=== PATIENT | female | born 1980 | race Caucasian/White ===

== ENCOUNTER 2020-02-22 10:41 | Emergency (ER) | payer SELFPAY ==
[2020-02-22 10:55] VITALS: BP 121/73; PULSE 89; RESP 18; TEMP 37.1; O2SAT 98
--- NOTE | 2020-02-22 11:00 | DI.RAD_ITS ---
EXAM: XR ANKLE LT COMPLETE CLINICAL HISTORY: pain s/p fall. TECHNIQUE: 2D digital imaging was performed. COMPARISON: No exams were available for comparison FINDINGS: Three views left ankle reveal no evidence of fracture or dislocation. Talar dome unremarkable. No w idening of the mortise. Bone density normal. IMPRESSION: No fracture evident. DATA REPOSITORY: RADIATION DOSE DELIVERED:
--- NOTE | 2020-02-22 11:15 | ED.GENADUL_ITS ---
Discharge Plan Disposition Patient Disposition: HOME Condition: Stable Discharge Details Clinical Impression: Left ankle sprain Primary Care Provider: Kaityln Reilly ED Provider: Ravi Bowen Home Meds and New Rx's Prescriptions: Continued Mirena 1 EACH intrauterine device 1 ea Intrauterine ONCE Qty: 1 RF: 0 Discharge Instructions Instructions: Ankle Sprain (ED) Additional Instructions: if pain continues in a week follow up with your primary care provider you can take 1000mg tylenol and 600mg ibuprofen for pain as needed every 6 hours Medical Decision Making 39 yo female states yesterday she rolled her left ankle on a stair, did not fall or hit her head. She has pain over lateral malleolus and can bear weight with mild limp and can fully move the anlke though with pain. Normal pulses and sensation and no metatarsal pain. Suspect sprain but will xray to evaluate for fx xray negative suspect sprain, will have her f/u with pcp if pain continues in a week and return precautions given Differential Diagnosis Differential Diagnosis: sprain, strain, fx Imaging Data Radiologic Study: Attestation: I personally reviewed and interpreted this imaging study as follows: Imaging: X-Ray Lab Data Labs: no acute findings HPI General Mode of arrival: ambulatory . Date/Time Provider Initiated Documentation: 02/22/20 10:51 . Limitations to Documentation: no limitations . Information obtained by: patient . History of Present Illness 39 year old F presents to the emergency department with the chief complaint of left ankle pain, described as moderate, and it has been constant. No relieving factors improve symptom(s), No exacerbating factors reported . Patient did receive the following treatments prior to arrival, none Related Data Home Medications Medication Instructions Recorded Confirmed Mirena 1 ea INTRAUTERINE ONCE #1 implant 03/27/16 02/22/20 Allergies Allergy/AdvReac Type Severity Reaction Status Date / Time doxycycline AdvReac Intermediate Vomiting Unverified 09/12/17 13:02 General Stated Complaint: Orthopedic MARC: 4 Review of Systems All systems reviewed & are unremarkable except as noted in HPI and below Constitutional Constitutional: Denies chills, Denies fever(s) and Denies weakness Cardiovascular Cardiovascular: Denies chest pain and Denies dyspnea Respiratory Respiratory: Denies cough and Denies dyspnea Gastrointestinal Gastrointestinal: Denies abdominal pain, Denies nausea and Denies vomiting Musculoskeletal Musculoskeletal: Denies joint swelling Neurologic Neurologic: Denies weakness Psychiatric Psychiatric: Denies depression PFS Medical History (Updated 02/22/20 @ 11:43 by Ravi Bowen MD) gallstone Surgical History (Updated 01/02/18 @ 14:34 by [facility] [place]) section X 2 Cholecystectomy Ligation of fallopian tube Family History Mother Cardiovascular disease CABG Father Diabetes mellitus, type 2 Social History Smoking/Tobacco Use Status: Current every day Smoking risk assessment performed?: Yes Alcohol Intake: never Drug use: Never Substance use type: does not use Do you feel safe in your relationship?: Yes Exam Const General: no acute distress Orientation: alert HENMT Head: normal to inspection Ears: external ears normal General nose exam: external nose normal Mouth: moist mucous membranes Eyes General: appearance normal, both eyes and all related structures Neck Neck: normal visual inspection Resp Effort & Inspection: normal respiratory effort and able to speak in complete sentences Cardio Rate: regular rate Skin General skin exam: no rashes or lesions noted Neuro General: patient alert and patient oriented x3 Extrem General: normal to inspection Psych Mental Status: mental status grossly normal Course Vital Signs Vital signs: Vital Signs Temperature 37.1 C 02/22/20 10:55 Pulse 89 02/22/20 10:55 Respiratory Rate 18 02/22/20 10:55 Blood Pressure 121/73 02/22/20 10:55 Pulse Oximetry 98 02/22/20 10:55 Temperature 37.1 C 02/22/20 10:55 Temperature Source Skin 02/22/20 10:55 Pulse 89 02/22/20 10:55 Respiratory Rate 18 02/22/20 10:55 Respiratory Effort Non-Labored 02/22/20 10:59 Blood Pressure 121/73 02/22/20 10:55 Blood Pressure Position Sitting 02/22/20 10:55 Pulse Oximetry 98 02/22/20 10:55 Oxygen Delivery Method Room Air 02/22/20 10:55 Oxygen Flow Rate 0 02/22/20 10:55 Pain Level 7 02/22/20 10:57
--- NOTE | 2020-02-22 11:38 | DI.VRAD_ITS ---
PROCEDURE INFORMATION: Exam: XR Left Ankle Exam date and time: 02/22/2020 11:02 AM Age: 39 years old Clinical indication: Other: Pain S/P fall TECHNIQUE: Imaging protocol: XR Left ankle. Views: 3 or more views. COMPARISON: CR LEFT ANKLE COMPLETE 10/04/2015 5:22 PM FINDINGS: Bones/joints: Normal. Soft tissues: Normal. IMPRESSION: No acute findings. Dictated and Authenticated by: Julio Crowley MD. Ordering:ADALBERTO Rodrigues MD
== END 2020-02-22 12:00 | disposition home or self-care (01) ==
LOC: ER 12:00
PROVIDERS: Emergency Provider Emergency Medicine; PCP Internal Medicine
DX: S93.492A Sprain of other ligament of left ankle, initial encounter (principal); X50.9XXA Other and unspecified overexertion or strenuous movements or postures, initial encounter
CPT/HCPCS: 99283; 73610

== ENCOUNTER 2022-12-27 17:22 | Inpatient (IN) | payer BC, SELFPAY ==
[2022-12-27 17:36] VITALS: BP 155/91; PULSE 100; RESP 20; TEMP 37.2; O2SAT 100
--- NOTE | 2022-12-27 17:45 | DI.CT_ITS ---
Exam(s) CT PELVIC W EXAM: CT PELVIC W CLINICAL HISTORY: perineal abscess TECHNIQUE: Imaging Protocol: Axial computed tomography images with coronal and sagittal reformatted images were created and reviewed CONTRAST MATERIAL: Intravenous: Omnipaque 350 Contrast volume:100 mL Oral: No COMPARISON: CT RENAL COLIC WO CONTRAST from 08/24/2017 FINDINGS: PELVIS: Abdominal Aorta: Abdominal portion non-dilated. Atherosclerosis. Bowel: No obstruction or bowel wall thickening. Appendix is unremarkable. Peritoneal Cavity: No ascites, collection or mesenteric inflammatory response. Soft Tissues: There is a small fat containing umbilical hernia. There is infiltration in the medial left gluteal fold perianal region. This measures 3.6 cm. There is a fluid collection in this region measuring approximately 2.3 cm consistent with an abscess. Bladder: Symmetric distention, no gross wall thickening. Reproductive Organs: There is an IUD in good position. Lymph Nodes: There is an enlarged 1.6 x 2.6 cm left external iliac chain lymph node. This has shown interval increase in size compared to the prior examination. Previously this measured 0.8 x 1.5 cm. There also mildly enlarged lymph nodes in the left inguinal region. The largest measures 1.9 x 1.1 cm. Bones: Within normal limits for the patient's age. IMPRESSION: Left gluteal/perianal abscess as described. RADIATION DOSE DELIVERED: Total DLP DATA REPOSITORY: All CT scans at this facility are submitted to the National Radiology Data Registry (NRDR) Dose Index Registry (DIR) with the [employer] (A[employer]). RADIATION OPTIMIZATION: All CT scans at this facility use at least one of these dose optimization te chniques: automated exposure control; mA and/or kV adjustment per patient size (includes targeted exa ms where dose is matched to clinical indication); or iterative reconstruction.
[2022-12-27 18:17] LABS: Abs Immature Grans 0.04 10^3/uL (0.0-0.06); Absolute Basophil Count 0.07 10^3/uL (0.0-0.2); Absolute Eosinophil Count 0.22 10^3/uL (0.0-0.7); Absolute Lymphocyte Count 2.42 10^3/uL (1.2-3.4); Absolute Monocyte Count 0.41 10^3/uL (0.1-0.8); Absolute Neutrophil Count 8.44 10^3/uL (1.2-6.7); Basophils % 0.6; Eosinophils % 1.9; HGB 15.1 g/dL (11.2-15.7); Immature Grans % 0.3; Lymphocytes % 20.9; MCH 31.1 pg (27.0-33.0); MCHC 34.3 % (32.0-36.0); MCV 91 fL (80-95); MPV 9.3 fL (8.0-11.0); Monocytes % 3.5; Neutrophils % 72.8; Platelet Count 183 10^3/uL (130-400); RBC 4.86 10^6/uL (3.93-5.22); RDW 12.7 % (11.7-14.6); RDW-SD 42.1 fL
--- NOTE | 2022-12-27 18:26 | ED.GENADUL_ITS ---
Discharge Plan Discharge Details Chief Complaint: RashLesion Admit Date/Time: 12/27/22 20:01 Admit Provider: Jo Ann Rios Attending Provider: Jo Ann Rios Primary Care Provider: Kaitlyn Reilly ED Provider: Freedom Singh Discharge Data Discharge Date/Time-TO BE ENTERED AT DEPARTURE: 12/27/22 21:27 Medical Decision Making Emergent evaluation of abscess. Initial differential includes cellulitis, perirectal abscess, necrotizing fasciitis, labial abscess. Patient has elevated heart rate. She is afebrile. Symptoms have been progressively worsening over the weekend she has history of sweat gland infections. I am concerned for deep space infection. Initial plan includes IV antibiotics, fluid resuscitation, pain control. We will check lab work and draw blood cultures. Will get CT imaging of the area to evaluate the extent of the infection. I anticipate need for surgical consultation for drainage. 1830: CBC with elevated white count and shift I am concerned for deep space infection. 1920: CMP without electrolyte abnormalities. test negative. At this time pain is improved with medication. CT pending. 1950: CT results and imaging reviewed. Large ABSCESS In the perineum, given its size and complexity, will consult general surgery for management. Discussed with general surgery they recommend admission, continued IV antibiotics and they will surgically manage abscess tomorrow. Patient updated on plan. Medical Records Medical records reviewed: Yes I reviewed the patient's medical records. Lab Data Lab results reviewed: Yes I reviewed the patient's lab results. Labs: 12/27/22 18:33 Blood Blood Culture - Pending 12/27/22 18:10 Blood Blood Culture - Pending Laboratory Tests Range/Units 12/27/22 12/27/22 12/27/22 18:10 18:10 18:10 WBC (4.4-10.8) 10^3/uL 11.60 H RBC (3.93-5.22) 10^6/uL 4.86 Hgb (11.2-15.7) g/dL 15.1 Hct (36.0-46.0) % 44.0 MCV (80-95) fL 91 MCH (27.0-33.0) pg 31.1 MCHC (32.0-36.0) % 34.3 RDW (11.7-14.6) % 12.7 Plt Count (130-400) 10^3/uL 183 MPV (8.0-11.0) fL 9.3 Immature Gran % 0.3 Neutrophils % 72.8 Lymphocytes % 20.9 Monocytes % 3.5 Eosinophils % 1.9 Basophils % 0.6 Nucleated RBC % (0.0-0.3) % 0.0 Absolute Neutrophils (1.2-6.7) 10^3/uL 8.44 H Absolute Lymphocytes (1.2-3.4) 10^3/uL 2.42 Absolute Monocytes (0.1-0.8) 10^3/uL 0.41 Absolute Eosinophils (0.0-0.7) 10^3/uL 0.22 Absolute Basophils (0.0-0.2) 10^3/uL 0.07 Sodium (136-145) mmol/L 136 Potassium (3.5-5.1) mmol/L 3.6 Chloride (98-107) mmol/L 101 Carbon Dioxide (21.0-32.0) mmol/L 27.1 Anion Gap (3-11) mmol/L 7.9 BUN (7-18) mg/dL 5 L Creatinine (0.55-1.02) mg/dL 0.9 Est GFR (CKD-EPI 2020) (mL/min/1.73m2) 82.37 Glucose (74-106) mg/dL 129 H Calcium (8.5-10.1) mg/dL 9.5 Total Bilirubin (0.2-1.0) mg/dL 0.5 AST (15-37) U/L 22 ALT (14-59) U/L 41 Alkaline Phosphatase (46-116) U/L 85 Total Protein (6.4-8.2) g/dL 8.2 Albumin (3.4-5.0) g/dL 4.0 Serum HCG, Qual Negative HPI General Date/Time Provider Initiated Documentation: 12/27/22 17:50 . Limitations to Documentation: no limitations . Information obtained by: patient . HPI Narrative: 42-year-old female without significant past medical history presents for evaluation of painful sitting. Reports that symptoms started about 5 days ago and have been progressively worsening. Pain is constant, severe, she is unable to sit down. She reports significant pain with bowel movements. She denies any fever or dysuria. She reports that she thought that it was a sweat gland infection which she has had many times before. She states that she normally applies a topical medication and that this usually takes care of this infection within a few days. She states that this feels very different. Related Data Home Medications Medication Instructions Recorded Confirmed levonorgestrel 21 mcg/24 hours (8 1 ea intrauterine ONCE #1 implant 03/27/16 12/27/22 yrs) 52 mg intrauterine device (Mirena) Allergies Allergy/AdvReac Type Severity Reaction Status Date / Time doxycycline AdvReac Intermediate Vomiting Unverified 12/27/22 17:39 General Stated Complaint: RashLesion MARC: 4 PFSH All Active Problems Family history of diabetes mellitus (Acute 07/13/14) father; pt did not have gestational DM Encounter for insertion of mirena IUD (Acute 03/27/16) Family history of ASCVD (Acute 07/13/14) Mother S/P CABG x 3 in her 40's Obesity (Acute 07/13/14) Pure hypercholesterolemia (Acute 07/13/14) Smoker (Acute 07/13/14) Medical History gallstone Surgical History section X 2 Cholecystectomy Ligation of fallopian tube Family History Mother Cardiovascular disease CABG Father Diabetes mellitus, type 2 Social History Smoking/Tobacco Use Status: Current every day Tobacco: How many years used: 25 Quit status: considering quitting Smoking risk assessment performed?: Yes Alcohol Intake: never Drug use: Never Substance use type: does not use Household members: significant other and children Housing: house Number of Children: 2 Communication Needs: None Education Level: high school current occupation: employed by [employer] x 13 years Current gender identity: female What is your relationship status?: living with partner How often do you talk on the phone with friends or family?: three or more times per week How often do you get together with friends or relatives?: three or more times per week Panel score (0-1 are the most socially isolated patients): 2 What type of physical activity do you participate in: walking Frequency: 5-6 times per week Seatbelt use: always 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 There is tenderness and induration throughout the perineum, on rectal examination there are multiple external hemorrhoids that are nontender and nonbleeding. She has no tenderness with rectal examination I do not appreciate any induration within the rectum itself Female genitals images: 1. area of erythema, induration, tenderness Course Vital Signs Vital signs: Vital Signs Temperature 37.2 C 12/27/22 17:36 Pulse 100 H 12/27/22 17:36 Respiratory Rate 20 12/27/22 17:36 Blood Pressure 155/91 H 12/27/22 17:36 Pulse Oximetry 100 12/27/22 17:36 Temperature 37.2 C 12/27/22 17:36 Temperature Source Skin 12/27/22 17:36 Pulse 100 H 12/27/22 17:36 Respiratory Rate 20 12/27/22 17:36 Respiratory Effort Normal 12/27/22 17:40 Blood Pressure 155/91 H 12/27/22 17:36 Blood Pressure Position Standing 12/27/22 17:36 Pulse Oximetry 100 12/27/22 17:36 Lab/Test Results Lab/Test Results: 12/27/22 18:10 Blood Blood Culture - Pending 12/27/22 17:50 Blood Blood Culture - Pending Laboratory Tests Range/Units 12/27/22 18:10 WBC (4.4-10.8) 10^3/uL 11.60 H RBC (3.93-5.22) 10^6/uL 4.86 Hgb (11.2-15.7) g/dL 15.1 Hct (36.0-46.0) % 44.0 MCV (80-95) fL 91 MCH (27.0-33.0) pg 31.1 MCHC (32.0-36.0) % 34.3 RDW (11.7-14.6) % 12.7 Plt Count (130-400) 10^3/uL 183 MPV (8.0-11.0) fL 9.3 Immature Gran % 0.3 Neutrophils % 72.8 Lymphocytes % 20.9 Monocytes % 3.5 Eosinophils % 1.9 Basophils % 0.6 Nucleated RBC % (0.0-0.3) % 0.0 Absolute Neutrophils (1.2-6.7) 10^3/uL 8.44 H Absolute Lymphocytes (1.2-3.4) 10^3/uL 2.42 Absolute Monocytes (0.1-0.8) 10^3/uL 0.41 Absolute Eosinophils (0.0-0.7) 10^3/uL 0.22 Absolute Basophils (0.0-0.2) 10^3/uL 0.07 PAWSS Have you Been Recently Intoxicated or Drunk Within the Last 30 days?: No Have you Ever Experienced Previous Episodes of Alcohol Withdrawal?: No Have you ever Experienced Withdrawal Seizures?: No Have you ever Experienced Delirium Tremens(DT)s?: No Have you ever undergone Alcohol Rehabilitation Treatment (i.e, inpt ot outpatient treatment programs)?: No Have you ever Experienced Blackouts?: No Have you ever Combined Alcohol with other Downers within the last 90 days?: No Have you ever Combined Alcohol with any other Substance of Abuse during the last 90 days?: No Positive Blood Alcohol level on Presentation? [PCS.BAL]: No Evidence of Increased Autonomic Activity (i.e. HR>120, tremor, sweating, agitation, nausea)?: No Result: 0
[2022-12-27] MEDS: PIPERACILLIN/TAZO 4.5 GM in Normal Saline 100 ML IVPB ×2 (18:32→23:29)
[2022-12-27] MEDS: Ondansetron 4 MG/2 ML VIAL IVP ×2 (18:32→22:27)
[2022-12-27] MEDS: MORPHine 10 MG/ML VIAL 6 MG IVP (18:33)
[2022-12-27 18:37] LABS: ALT 41 U/L (14-59); AST 22 U/L (15-37); Alkaline Phosphatase 85 U/L (46-116); Anion Gap 7.9 mmol/L (3-11); BUN 5 mg/dL (7-18); Bilirubin, Total 0.5 mg/dL (0.2-1.0); CO2 27.1 mmol/L (21.0-32.0); CREATININE 0.9 mg/dL (0.55-1.02); Calcium 9.5 mg/dL (8.5-10.1); Chloride 101 mmol/L (98-107); Estimated GFR 82.37 (mL/min/1.73m2); Glucose 129 mg/dL (74-106); Potassium 3.6 mmol/L (3.5-5.1); Sodium 136 mmol/L (136-145); Total Protein 8.2 g/dL (6.4-8.2)
[2022-12-27 18:53] LABS: HCG Qual (Serum) Negative
[2022-12-27] MEDS: Omnipaque 350 MG/ML 100 ML BTL IJ (19:19)
[2022-12-27] MEDS: Normal Saline - Diluent 50 ML VIAL IJ (19:19)
[2022-12-27] MEDS: Normal Saline Flush 10 ML SYR IVP (19:20)
--- NOTE | 2022-12-27 19:31 | DI.VRAD_ITS ---
PROCEDURE INFORMATION: Exam: CT Pelvis With Contrast Exam date and time: 12/27/2022 7:13 PM Age: 42 years old Clinical indication: Other: Perineal abscess TECHNIQUE: Imaging protocol: Computed tomography of the pelvis with contrast. Contrast material: 350; Contrast volume: 100 ml; Contrast route: INTRAVENOUS (IV); COMPARISON: CT RENAL COLIC WO CONTRAST 08/24/2017 6:45 PM FINDINGS: Stomach and bowel: Visualized small bowel and colon are unremarkable. Appendix: No evidence of appendicitis. Intraperitoneal space: Unremarkable. No free air. No significant fluid collection. Lymph nodes: Unremarkable. No enlarged lymph nodes. Urinary bladder: Normal. No mass. Reproductive: Small left ovarian cyst. Intrauterine device in the uterus Bones/joints: Unremarkable. No acute fracture. No dislocation. Soft tissues: Subcutaneous fluid and infiltration in the medial left gluteal fold/perianal region measuring 3.6 cm. Additional locule noted superiorly measuring 2.3 cm IMPRESSION: Left gluteal/perianal abscesses as described Dictated and Authenticated by: Ike Singh MD. Ordering:[facility] Francisco De Anda MD
[2022-12-27] MEDS: Normal Saline 1,000 ML 1000 ML IV (19:34)
[2022-12-27 21:19] VITALS: BP 144/81; PULSE 111; RESP 16; TEMP 36.6; O2SAT 97
[2022-12-27 22:24] LABS: Source Nasal/Nares
[2022-12-27 22:59] LABS: COVID-19 PCR Negative (Negative)
[2022-12-28] VITALS (10 sets, daily range): BP systolic 96–128; BP diastolic 60–78; PULSE 60–77; RESP 13–21; TEMP 36–36.7; O2SAT 94–98; BMI 34.4
[2022-12-28] MEDS: Ketorolac 30 MG/ML VIAL IVP ×3 (01:17→19:20)
[2022-12-28] MEDS: Prochlorperazine 10 MG TAB PO (01:17)
[2022-12-28] MEDS: PIPERACILLIN/TAZO 4.5 GM in Normal Saline 100 ML IVPB ×4 (05:04→23:13)
[2022-12-28] MEDS: VANCOMYCIN 1,250 MG in Normal Saline 250 ML 166.667 MG IVPB (08:34)
--- NOTE | 2022-12-28 09:19 | ANES.PREOP_ITS ---
General Info Date of Service Date Performed: 12/28/22 Height: 5 ft 5 in Weight: 93.894 kg Body Mass Index (BMI): 34.4 Surgical Procedure: Operation Date: 12/28/22 15:10 Proposed Procedure Side Surgeon p Excision-Sadia Rectal Abscess Daisy Brown, DO Meds Allergies and Home Medications Allergies Allergy/AdvReac Type Severity Reaction Status Date / Time doxycycline AdvReac Intermediate Vomiting Unverified 12/27/22 17:39 Home Medication Medication Instructions Recorded levonorgestrel 21 mcg/24 hours (8 1 ea intrauterine ONCE #1 implant 03/27/16 yrs) 52 mg intrauterine device (Mirena) Current Visit Medications: Current Medications Generic Name Dose Route Start Last Admin Trade Name Freq PRN Reason Stop Dose Admin Sodium Chloride 500 mls @ 0 mls/hr 12/27/22 17:50 Saline 500ml Bag IV PRN PRN As Directed Piperacillin Sod/Tazobactam 100 mls @ 200 mls/hr 12/28/22 00:00 12/27/22 23:29 Sod 4.5 gm/ Sodium Chloride IVPB 200 mls/hr Q6H RENATA Administration Acetaminophen 1,000 mg in 100 mls @ 400 mls/hr 12/27/22 22:14 Ofirmev IVPB Q6H PRN PRN Fever Vancomycin HCl / Sodium 250 mls @ 0 mls/hr 12/27/22 22:30 Chloride IVPB .PER PROTOCOL RENATA Per Protocol Promethazine HCl 25 mg/ Sodium 51 mls @ 204 mls/hr 12/27/22 22:41 Chloride IVPB Q6H PRN PRN Vancomycin HCl 1,250 mg/ 250 mls @ 166.667 mls/hr 12/28/22 08:00 12/28/22 08:34 Sodium Chloride IVPB 166.667 mls/hr Q12H RENATA Administration IV Miscellaneous Supplies 1 each 12/27/22 18:00 Iv Access IV DIRECTED RENATA Ketorolac Tromethamine 30 mg 12/27/22 22:13 12/28/22 01:17 Ketorolac 30 Mg/Ml Vial IVP 01/01/23 22:12 30 mg Q6H PRN PRN Administration Morphine Sulfate 4 mg 12/27/22 20:00 Morphine 4 Mg/Ml Vial IVP Q2H PRN PRN Ondansetron HCl 4 mg 12/27/22 21:55 12/27/22 22:27 Ondansetron 4 Mg/2 Ml Vial IVP 4 mg Q6H PRN PRN Administration Prochlorperazine Maleate 10 mg 12/27/22 22:25 12/28/22 01:17 Prochlorperazine 10 Mg Tab PO 10 mg Q6H PRN PRN Administration Sodium Chloride 0 ml 12/27/22 17:50 12/27/22 19:20 Normal Saline Flush 10 Ml Syr IVP 10 ml PRN PRN Administration PFSH Active Problems Active Problems: Problem Status Onset Code Family history of diabetes mellitus 07/13/14 Z83.3 Encounter for insertion of mirena IUD 03/27/16 Z30.430 Family history of ASCVD 07/13/14 Z82.49 Obesity 07/13/14 E66.9 Pure hypercholesterolemia 07/13/14 E78.00 Smoker 07/13/14 F17.200 Medical History Medical History gallstone Surgical History Surgical History section X 2 Cholecystectomy Ligation of fallopian tube Tobacco Smoking/Tobacco Use Status: Current every day Alcohol Alcohol Intake: never Substance Use Substance use: Never Substance use type: does not use Vital Signs and Lab Results Vital Signs Most Recent Vital Signs in EMR: Most Recent Vital Signs Temp Pulse Resp BP Pulse Ox 36.0 C L 77 17 106/67 95 12/28/22 09:14 12/28/22 09:14 12/28/22 09:14 12/28/22 09:14 12/28/22 09:14 Lab Results 12/27/22 18:10 12/27/22 18:10 Blood Type / Crossmatch: 2 No Data to Display Complete Blood Count: 2 White Blood Count 11.60 10^3/uL (4.4-10.8) H 12/27/22 18:10 Red Blood Count 4.86 10^6/uL (3.93-5.22) 12/27/22 18:10 Hemoglobin 15.1 g/dL (11.2-15.7) 12/27/22 18:10 Hematocrit 44.0 % (36.0-46.0) 12/27/22 18:10 Platelet Count 183 10^3/uL (130-400) 12/27/22 18:10 Complete Metabolic Panel: 2 Sodium 136 mmol/L (136-145) 12/27/22 18:10 Potassium 3.6 mmol/L (3.5-5.1) 12/27/22 18:10 Chloride 101 mmol/L (98-107) 12/27/22 18:10 Carbon Dioxide 27.1 mmol/L (21.0-32.0) 12/27/22 18:10 BUN 5 mg/dL (7-18) L 12/27/22 18:10 Creatinine 0.9 mg/dL (0.55-1.02) 12/27/22 18:10 Est GFR (CKD-EPI 2020) 82.37 (mL/min/1.73m2) 12/27/22 18:10 Calcium 9.5 mg/dL (8.5-10.1) 12/27/22 18:10 Albumin 4.0 g/dL (3.4-5.0) 12/27/22 18:10 Glucose 129 mg/dL (74-106) H 12/27/22 18:10 Liver Function Panel: 2 Alanine Aminotransferase (ALT/SGPT) 41 U/L (14-59) 12/27/22 18: 10 Aspartate Amino Transf (AST/SGOT) 22 U/L (15-37) 12/27/22 18:10 Coagulation Panel: 2 No Data to Display Cardiac Panel: 2 No Data to Display Arterial Blood Gas: 2 No Data to Display Venous Blood Gas: 2 No Data to Display Pancreas Panel: 2 No Data to Display Thyroid Panel: 2 No Data to Display Infectious Disease: 2 Coronavirus (COVID-19)(PCR) Negative (Negative) 12/27/22 22:22 Coronavirus 2019 Source Nasal/Nares 12/27/22 22:22 Blood Cultures: 2 No Data to Display Toxicology Panel: 2 No Data to Display Panel: 2 Serum HCG, Qualitative Negative 12/27/22 18:10 Anesthesia Assessment and Plan Anesthesia History Personal History: No History of Anesthesia Complications Family History: No Family History of Anesthesia Complications Exercise Tolerance Exercise Tolerance: Metabolic Equivalents>4 Cardiac & Pulmonary Exam Cardiac Exam: Normal S1/S2 Heart Sounds Pulmonary Exam: Clear Bilateral Breath Sounds Implantable Cardiac Device Does patient have a Pacemaker or an ICD?: No Airway Exam Known Difficult Airway: No Mallampati Class: 3 Mouth Opening: Narrow (< 3cm) Thyromental Distance: Less than 3 cm Neck Range of Motion: Full ROM Neck Circumference: Normal Teeth Condition: Normal Dentition ASA Classification ASA Score: ASA 2 Emergency Case?: Yes NPO Status NPO Status: NPO Clears >2 hours, Solids >8 hours Status Status: Negative HCG Anesthesia Plan Resuscitation Status: Full Code Anesthesia Technique: General Anesthesia Airway Planned: Endotracheal Tube Monitors Used: Standard Monitors Preoperative Comments:: 42 yo female for perirectal abscess. Currently inpt. pip/anthony (last dose 0500), vanco (last dose 0834) given. Zofran/prochlorperazine given for nausea. Sig PMHx: smoker, denies major. Currently in significant pain sitting. hungry. agrees to GA with ETT.
--- NOTE | 2022-12-28 09:23 | W.PM.HP.N ---
Date of service: 12/28/22 Time of Service: : Assessment and Plan Assessment and plan (1) Family history of diabetes mellitus: Status: Acute (2) Family history of ASCVD: Status: Acute (3) Obesity: Status: Acute (4) Pure hypercholesterolemia: Status: Acute (5) Smoker: Status: Acute (6) Sadia-rectal abscess: Status: Acute Assessment and plan: CT PELVIS: Abdominal Aorta: Abdominal portion non-dilated. Atherosclerosis. Bowel: No obstruction or bowel wall thickening. Appendix is unremarkable. Peritoneal Cavity: No ascites, collection or mesenteric inflammatory response. Soft Tissues: There is a small fat containing umbilical hernia. There is infiltration in the medial left gluteal fold perianal region. This measures 3.6 cm. There is a fluid collection in this region measuring approximately 2.3 cm consistent with an abscess. Bladder: Symmetric distention, no gross wall thickening. Reproductive Organs: There is an IUD in good position. Lymph Nodes: There is an enlarged 1.6 x 2.6 cm left external iliac chain lymph node. This has shown interval increase in size compared to the prior examination. Previously this measured 0.8 x 1.5 cm. There also mildly enlarged lymph nodes in the left inguinal region. The largest measures 1.9 x 1.1 cm. Bones: Within normal limits for the patient's age. IMPRESSION: Left gluteal/perianal abscess as described. Patient will need to go to the OR for exploration and drainage. Risks include bleeding, infection, pneumonia, blood clots, complications from anesthesia. Scarring, recurrence, need for fistula, damage to sphincters including stenosis or loss of control, poor cosmesis, and delayed healing. -She is on Vanco and Zosyn Low-grade white count and fever Further recommendations to follow pending results at the time of surgery History of Present Illness Narrative: Patient has a history of hidradenitis suppurative. She is a smoker. She has developed a perirectal abscess. She is never had a perirectal abscess in the past. She denies any trauma. She denies any pain or difficulty moving her bowels. She says she is not diabetic. She denies any allergies to any medication. She denies any problems with anesthesia in the past. Review of Systems All systems reviewed & are unremarkable except as noted in HPI and below PFSH All Active Problems Sadia-rectal abscess (Acute) Family history of diabetes mellitus (Acute 07/13/14) father; pt did not have gestational DM Encounter for insertion of mirena IUD (Acute 03/27/16) Family history of ASCVD (Acute 07/13/14) Mother S/P CABG x 3 in her 40's Obesity (Acute 07/13/14) Pure hypercholesterolemia (Acute 07/13/14) Smoker (Acute 07/13/14) Medical History gallstone Surgical History Ligation of fallopian tube section X 2 Cholecystectomy Family History Mother Cardiovascular disease CABG Father Diabetes mellitus, type 2 Social History Smoking/Tobacco Use Status: Current every day Tobacco: How many years used: 25 Quit status: considering quitting Smoking risk assessment performed?: Yes Alcohol Intake: never Drug use: Never Substance use type: does not use Household members: significant other and children Housing: house Number of Children: 2 Communication Needs: None Education Level: high school current occupation: employed by [employer] x 13 years Current gender identity: female What is your relationship status?: living with partner How often do you talk on the phone with friends or family?: three or more times per week How often do you get together with friends or relatives?: three or more times per week Panel score (0-1 are the most socially isolated patients): 2 What type of physical activity do you participate in: walking Frequency: 5-6 times per week Seatbelt use: always Drive intox or ride w/intox assembly line driver: No Working smoke detector in home: Yes Fire extinguisher in home: Yes Carbon monox detector in home: Yes Do you feel safe at home: Yes Do you feel safe in your relationship?: Yes Meds Allergies and Home Medications Allergies Allergy/AdvReac Type Severity Reaction Status Date / Time doxycycline AdvReac Intermediate Vomiting Unverified 12/27/22 17:39 Home Medications Medication Instructions Recorded Confirmed Type levonorgestrel 21 mcg/24 hours (8 1 ea intrauterine ONCE #1 implant 03/27/16 12/27/22 History yrs) 52 mg intrauterine device (Mirena) pneumococcal 23-esa ps vaccine 25 0.5 ml IM ONCE #0.5 mL 05/11/21 12/27/22 Clinic mcg/0.5 mL injection solution Exam Narrative Exam Narrative: PHYSICAL EXAM GENERAL APPEARANCE: Alert, healthy appearance, oriented, x 3,? in no acute distress HYDRATION: Well hydrated HEAD, EYES, EARS, NECK, THROAT: Head is normocephalic, pupils equal, round, reactive to light and accommodation, ocular movement intact, sclera clear and no jaundice. ?Dentition intact. LUNGS: normal respiration/normal chest excursion. ?Clear to auscultation bilaterally. ?No wheeze. ?HEART: Regular rate and rhythm. no murmurs Perirectal abscess left buttock. Patient would not tolerate internal exam ABDOMEN: soft and non-tender to palpation.? Normal bowel sounds.? Results Labs 12/27/22 18:10 12/27/22 18:10 Labs: Laboratory Results - last 24 hr 12/27/22 12/27/22 18:10 22:22 WBC 11.60 H RBC 4.86 Hgb 15.1 Hct 44.0 MCV 91 MCH 31.1 MCHC 34.3 RDW 12.7 Plt Count 183 MPV 9.3 Immature Gran % 0.3 Neutrophils % 72.8 Lymphocytes % 20.9 Monocytes % 3.5 Eosinophils % 1.9 Basophils % 0.6 Nucleated RBC % 0.0 Absolute Neutrophils 8.44 H Absolute Lymphocytes 2.42 Absolute Monocytes 0.41 Absolute Eosinophils 0.22 Absolute Basophils 0.07 Sodium 136 Potassium 3.6 Chloride 101 Carbon Dioxide 27.1 Anion Gap 7.9 BUN 5 L Creatinine 0.9 Est GFR (CKD-EPI 2020) 82.37 Glucose 129 H Calcium 9.5 Total Bilirubin 0.5 AST 22 ALT 41 Alkaline Phosphatase 85 Total Protein 8.2 Albumin 4.0 Serum HCG, Qual Negative COVID-19 Source Nasal/Nares SARS-CoV-2 (PCR) Negative Last Vital Signs Temp 36.0 C L 12/28/22 09:14 Pulse 77 12/28/22 09:14 Resp 17 12/28/22 09:14 BP 106/67 12/28/22 09:14 Pulse Ox 95 12/28/22 09:14 PAWSS Have you Been Recently Intoxicated or Drunk Within the Last 30 days?: No Have you Ever Experienced Previous Episodes of Alcohol Withdrawal?: No Have you ever Experienced Withdrawal Seizures?: No Have you ever Experienced Delirium Tremens(DT)s?: No Have you ever undergone Alcohol Rehabilitation Treatment (i.e, inpt ot outpatient treatment programs)?: No Have you ever Experienced Blackouts?: No Have you ever Combined Alcohol with other Downers within the last 90 days?: No Have you ever Combined Alcohol with any other Substance of Abuse during the last 90 days?: No Positive Blood Alcohol level on Presentation? [PCS.BAL]: No Evidence of Increased Autonomic Activity (i.e. HR>120, tremor, sweating, agitation, nausea)?: No Result: 0 Time Spent Time spent with Patient: 40-54 minutes Time was spent: preparing to see the patient(eg.review tests), obtaining and/or reviewing separately otained hiistory, ordering medications,tests, procedures, referring, communicating with other health health care marketing specialist, indepentently interpreting results, counseling the patient and care coordination
[2022-12-28 09:24] LABS: Vancomycin, Random 7.9 ug/mL
--- NOTE | 2022-12-28 11:21 | W.PM.OP ---
Date of service: 12/28/22 Time of Service: 11:21 Operative Note Operative Note DATE OF PROCEDURE: 12/28/22 PRE-OP DIAGNOSIS: Perirectal abscess at the 7 o'clock position perirectal abscess POST-OP DIAGNOSIS: same PROCEDURE: Incision and drainage SURGEON: Daisy Brown ANESTHESIA TYPE: Local By Surgeon and General LMA/ETT Refer to Anesthesia Record ESTIMATED BLOOD LOSS: 7 PATHOLOGY: other COMPLICATIONS: None Patient was transported to: PACU Patient's condition: stable Procedure Description: Patient has developed a left perirectal abscess at the 7 o'clock position. She is here today for incision and drainage. Informed consent is obtained explaining risks and benefits of procedure including but not limited to: Bleeding, infection, pneumonia, blood clots, damage to sphincters resulting in stenosis or loss of control, need for further dressing changes, recurrence of the abscess or fistula requiring further surgery. Daily dressing changes, porous cosmesis, and other unforeseen problems. Patient is brought to the operating room suite. Anesthesia is administered per the department of anesthesia. Patient is then prepped placed in the prone position with all bony surfaces padded. Patient is prepped and draped in usual sterile fashion using a Betadine scrub solution. She is already on antibiotics. Timeout is performed. 20 cc of 1% lidocaine with epi was used for local anesthetization to do a pudendal block. A 1 inch incision is made along the 7:00 meridian. Approximately 100 cc of anaerobic smelling fluid is drained. The wound is 8 cm long 5 cm wide and 4 cm deep. It is curetted to remove all necrotic tissue. It is irrigated with 800 cc of saline. Cultures were obtained prior to irrigation. All necrotic tissue was removed. The wound is then packed with wet-to-dry gauze. Sterile compression dressings are applied. Patient subsidy developed complication and transferred to cover room in stable condition.
[2022-12-28] MEDS: Lactated Ringers 1,000 ML 30 ML IV (11:27)
--- NOTE | 2022-12-28 12:48 | W.ANESPOSTOP ---
Postoperative Evaluation Date, Time and Location Date Performed: 12/28/22 Time Performed: 12:48 Patient Location: PACU Vital Signs Most Recent Imported Vital Signs: Most Recent Vital Signs Temp Pulse Resp BP Pulse Ox 36.6 C 72 13 112/67 97 12/28/22 12:15 12/28/22 12:15 12/28/22 12:15 12/28/22 12:15 12/28/22 12:15 Pain Score Most Recent Pain Score: Most Recent Pain Score Pain Level 0 12/28/22 12:15 Assessment Mental Status: Awake (Alert & Oriented to Patient Baseline) Airway and Respiratory Function: Patent airway with normal (patient baseline) respiratory exam Cardiovascular Function: Hemodynamically Stable Hydration Status: Adequately Hydrated Nausea & Vomiting: No Nausea or Vomiting Pain: Pain is tolerable per patient Peripheral Nerve Block: Patient did not receive a nerve block
[2022-12-28] MEDS: Acetaminophen 500 MG TAB 1000 MG PO ×3 (13:07→23:12)
--- NOTE | 2022-12-28 13:14 | PDOC.CMIN ---
Date of service: 12/28/22 Time of Service: 13:14 Care Management Initial Assmt Initial Assessment REASON FOR HOSPITALIZATION:: Perirectal Abscess PREVIOUS FUNCTIONAL STATUS/SOCIAL/FAMILY SUPPORTS:: Nani resides in [facility] and is independent at baseline in the community. CURRENT FUNCTIONAL STATUS:: Nani was brought to the OR today, per surgeon she will have new RN for wound care orders upon discharge. CM continues to follow. ADVANCE DIRECTIVES:: None on file. Has patient been provided with info about the portal/API?: Yes Did the patient sign up for the portal?: Yes CODE STATUS:: Full Code INSURANCE COVERAGE / FINANCIAL ISSUES:: BC/BS PRIMARY CARE PHYSICIAN:: Kaitlyn Reilly POTENTIAL DISCHARGE NEEDS:: New home health orders. PATIENT/FAMILY EDUCATION NEEDS:: Review discharge instructions, discuss Ask Me Three. ANTICIPATED BARRIERS TO DISCHARGE:: None identified. TRANSPORTATION:: Via private vehicle. PLAN:: Nani will return home when ready per MD, she will follow up with her PCP, and plan of care as prescribed. Per surgeon, anticipate new orders for home health RN; daily wound care. CM continues to follow. PFSH All Active Problems Pre-diabetes (Acute) Sadia-rectal abscess (Acute) Family history of diabetes mellitus (Acute 07/13/14) father; pt did not have gestational DM Encounter for insertion of mirena IUD (Acute 03/27/16) Family history of ASCVD (Acute 07/13/14) Mother S/P CABG x 3 in her 40's Obesity (Acute 07/13/14) Pure hypercholesterolemia (Acute 07/13/14) Smoker (Acute 07/13/14) Medical History gallstone Surgical History Ligation of fallopian tube section X 2 Cholecystectomy Family History Mother Cardiovascular disease CABG Father Diabetes mellitus, type 2 Social History Smoking/Tobacco Use Status: Current every day Tobacco: How many years used: 25 Quit status: considering quitting Smoking risk assessment performed?: Yes Alcohol Intake: never Drug use: Never Substance use type: does not use Household members: significant other and children Housing: house Number of Children: 2 Communication Needs: None Education Level: high school current occupation: employed by [employer] x 13 years Current gender identity: female What is your relationship status?: living with partner How often do you talk on the phone with friends or family?: three or more times per week How often do you get together with friends or relatives?: three or more times per week Panel score (0-1 are the most socially isolated patients): 2 What type of physical activity do you participate in: walking Frequency: 5-6 times per week Seatbelt use: always Drive intox or ride w/intox otr driver: No Working smoke detector in home: Yes Fire extinguisher in home: Yes Carbon monox detector in home: Yes Do you feel safe at home: Yes Do you feel safe in your relationship?: Yes
--- NOTE | 2022-12-28 17:27 | W.PM.PROGNOT ---
Date of Service Date of service: 12/28/22 Time of Service: 17:28 Assessment and Plan Assessment and plan (1) Sadia-rectal abscess: Status: Acute Assessment and plan: The patient is doing well post-op. Their pain is well controlled. They are having no nausea or vomiting. The pt is not having any chest pain or SOB, productive cough; no calf pain or swelling. The pt is making good urine. The pt pain is adequately controlled. The case was discussed with nursing and patient?s progress reviewed. All of the pt's home medications were addressed and adjusted accordingly for their oral intact status. HEENT: no jaundice. no eye pain/drainage/redness/swelling. Mild sore throat Cardio- NSR no chest pain, BP stable. Pulm: no sob or productive cough. no hemoptysis Incision- clean/dry. Dressing intact no excessive bleeding or drainage I discussed with the patient and/or there family about the findings in surgery and the pt's progress. We reviewed expectations for progress in the hospital; what the pt could expect for recovery time and length of stay. We discussed the importance of walking and pulmonary toilet to avoid blood clots and pneumonia. Continue current plans for pulmonary toilet, GI and DVT prophylaxis. We shall continue the current plan for pain management as it is at an appropriate level, and working well for the pt. Appropriate measures will be taken for constipation prevention, and this was also reviewed with the pt. The wound care plan was reviewed with nursing as well. -cont IV abx- zosyn and vanc -daily dressing changes: wet to dry packing (2) Family history of diabetes mellitus: Status: Acute (3) Obesity: Status: Acute (4) Pure hypercholesterolemia: Status: Acute (5) Smoker: Status: Acute Objective Last Vital Signs Temp 36.7 C 12/28/22 15:37 Pulse 74 12/28/22 15:37 Resp 19 12/28/22 15:37 BP 118/78 12/28/22 15:37 Pulse Ox 98 12/28/22 15:37 Laboratory Results - last 24 hr 12/27/22 12/27/22 12/28/22 18:10 22:22 06:35 WBC 11.60 H RBC 4.86 Hgb 15.1 Hct 44.0 MCV 91 MCH 31.1 MCHC 34.3 RDW 12.7 Plt Count 183 MPV 9.3 Immature Gran % 0.3 Neutrophils % 72.8 Lymphocytes % 20.9 Monocytes % 3.5 Eosinophils % 1.9 Basophils % 0.6 Nucleated RBC % 0.0 Absolute Neutrophils 8.44 H Absolute Lymphocytes 2.42 Absolute Monocytes 0.41 Absolute Eosinophils 0.22 Absolute Basophils 0.07 Sodium 136 Potassium 3.6 Chloride 101 Carbon Dioxide 27.1 Anion Gap 7.9 BUN 5 L Creatinine 0.9 Est GFR (CKD-EPI 2020) 82.37 Glucose 129 H Calcium 9.5 Total Bilirubin 0.5 AST 22 ALT 41 Alkaline Phosphatase 85 Total Protein 8.2 Albumin 4.0 Serum HCG, Qual Negative Random Vancomycin 7.9 COVID-19 Source Nasal/Nares SARS-CoV-2 (PCR) Negative PAWSS Have you Been Recently Intoxicated or Drunk Within the Last 30 days?: No Have you Ever Experienced Previous Episodes of Alcohol Withdrawal?: No Have you ever Experienced Withdrawal Seizures?: No Have you ever Experienced Delirium Tremens(DT)s?: No Have you ever undergone Alcohol Rehabilitation Treatment (i.e, inpt ot outpatient treatment programs)?: No Have you ever Experienced Blackouts?: No Have you ever Combined Alcohol with other Downers within the last 90 days?: No Have you ever Combined Alcohol with any other Substance of Abuse during the last 90 days?: No Positive Blood Alcohol level on Presentation? [PCS.BAL]: No Evidence of Increased Autonomic Activity (i.e. HR>120, tremor, sweating, agitation, nausea)?: No Result: 0 Time Spent with Patient Time Spent with Patient: <25 minutes Time was spent: preparing to see the patient(eg.review tests), obtaining and/or reviewing separately otained hiistory, ordering medications,tests, procedures, referring, communicating with other health restorative care technician, indepentently interpreting results, counseling the patient and care coordination
[2022-12-28] MEDS: VANCOMYCIN/WATER (PEG) 1.25 GM/250 ML BAG IV (19:20)
[2022-12-29] MEDS: Ketorolac 30 MG/ML VIAL IVP ×3 (01:05→15:12)
[2022-12-29] MEDS: PIPERACILLIN/TAZO 4.5 GM in Normal Saline 100 ML IVPB ×2 (05:27→12:08)
[2022-12-29] MEDS: Acetaminophen 500 MG TAB 1000 MG PO ×2 (05:28→11:39)
[2022-12-29 05:30] VITALS: BP 132/84; PULSE 57; RESP 18; TEMP 36.2; O2SAT 95
[2022-12-29 06:34] LABS: Abs Immature Grans 0.04 10^3/uL (0.0-0.06); Absolute Basophil Count 0.03 10^3/uL (0.0-0.2); Absolute Eosinophil Count 0.04 10^3/uL (0.0-0.7); Absolute Lymphocyte Count 1.74 10^3/uL (1.2-3.4); Absolute Monocyte Count 0.44 10^3/uL (0.1-0.8); Basophils % 0.3; Eosinophils % 0.4; HCT 36.5 % (36.0-46.0); HGB 12.4 g/dL (11.2-15.7); Immature Grans % 0.4; Lymphocytes % 16.1; MCH 31.3 pg (27.0-33.0); MCV 92 fL (80-95); MPV 9.9 fL (8.0-11.0); Monocytes % 4.1; Neutrophils % 78.7; Platelet Count 141 10^3/uL (130-400); RBC 3.96 10^6/uL (3.93-5.22); RDW 12.6 % (11.7-14.6); RDW-SD 42.9 fL; WBC 10.81 10^3/uL (4.4-10.8)
[2022-12-29 06:35] LABS: Absolute Neutrophil Count 8.51 10^3/uL (1.2-6.7)
[2022-12-29 06:49] LABS: Hemoglobin A1C 6.2 % (<5.7)
[2022-12-29] MEDS: VANCOMYCIN/WATER (PEG) 1.25 GM/250 ML BAG IV (08:18)
[2022-12-29] MEDS: Normal Saline Flush 10 ML SYR IVP ×2 (08:18→11:40)
[2022-12-29] MEDS: Polyethylene Glycol 3350 17 GM PACKET PO (08:18)
--- NOTE | 2022-12-29 08:42 | W.PM.PROGNOT ---
Date of Service Date of service: 12/29/22 Time of Service: 08:42 Assessment and Plan Assessment and plan (1) Sadia-rectal abscess: Status: Acute Assessment and plan: POD #1 s/p I&D of Sadia-Rectal Abscess cont IV abx- zosyn and vanc Will transition to PO antibiotics upon d/c WBC decreased slightly today to 10.81. No fevers, chills or night sweats. daily dressing changes: wet to dry packing Regular diet. Upon D/C she will need Home Health services for wound care and follow up with the surgical office. Hopefully d/c home later today Dressing changed at bedside. Patient tolerated very well. Wound is clean no granulation tissue yet. Redness and swelling are going down nicely. Patient would like to go home today she did move her bowels today. We will have her follow-up in clinic next . (2) Family history of diabetes mellitus: Status: Acute (3) Obesity: Status: Acute (4) Pure hypercholesterolemia: Status: Acute (5) Smoker: Status: Acute Assessment and plan: -stop smoking (6) Pre-diabetes: Status: Acute Assessment and plan: Follow-up with PCP Subjective Subjective Interval history since last seen: Arrived with patient sitting comfortably in bed. She states her pain is significantly improved. She denies any fevers, chills or night sweats. She expresses that she is eager to return home today. Exam Const General: cooperative, healthy appearing and comfortable Orientation: alert and oriented x3 Resp Effort & Inspection: normal respiratory effort, no audible wheezes and no cough Objective Last Vital Signs Temp 36.2 C L 12/29/22 05:30 Pulse 57 L 12/29/22 05:30 Resp 18 12/29/22 05:30 BP 132/84 12/29/22 05:30 Pulse Ox 95 12/29/22 05:30 Laboratory Results - last 24 hr 12/28/22 12/29/22 06:35 06:06 WBC 10.81 H RBC 3.96 Hgb 12.4 D Hct 36.5 MCV 92 MCH 31.3 MCHC 34.0 RDW 12.6 Plt Count 141 MPV 9.9 Immature Gran % 0.4 Neutrophils % 78.7 Lymphocytes % 16.1 Monocytes % 4.1 Eosinophils % 0.4 Basophils % 0.3 Nucleated RBC % 0.0 Absolute Neutrophils 8.51 H Absolute Lymphocytes 1.74 Absolute Monocytes 0.44 Absolute Eosinophils 0.04 Absolute Basophils 0.03 Hemoglobin A1c 6.2 H Random Vancomycin 7.9 PAWSS Have you Been Recently Intoxicated or Drunk Within the Last 30 days?: No Have you Ever Experienced Previous Episodes of Alcohol Withdrawal?: No Have you ever Experienced Withdrawal Seizures?: No Have you ever Experienced Delirium Tremens(DT)s?: No Have you ever undergone Alcohol Rehabilitation Treatment (i.e, inpt ot outpatient treatment programs)?: No Have you ever Experienced Blackouts?: No Have you ever Combined Alcohol with other Downers within the last 90 days?: No Have you ever Combined Alcohol with any other Substance of Abuse during the last 90 days?: No Positive Blood Alcohol level on Presentation? [PCS.BAL]: No Evidence of Increased Autonomic Activity (i.e. HR>120, tremor, sweating, agitation, nausea)?: No Result: 0 Time Spent with Patient Time Spent with Patient: 25-34 minutes Time was spent: preparing to see the patient(eg.review tests), obtaining and/or reviewing separately otained hiistory, ordering medications,tests, procedures, referring, communicating with other health pet care worker, indepentently interpreting results, counseling the patient and care coordination
[2022-12-29] MEDS: HYDROmorphone 2 MG/ML SYR 0.5 MG IVP (11:39)
[2022-12-29] MEDS: LORazepam 0.5 MG TAB PO (11:39)
--- NOTE | 2022-12-29 13:19 | PDOC.HHF2F_ITS ---
Home Health Referral Home Health Orders Clinical synopsis of why skilled professionals are needed: Daily dressing changes for perirectal abscess 7 x 5 x 4 cm Medical diagnosis necessitation home health referral: Perirectal abscess Registered Nurse: Check all that apply Instruct on new or changed medication(s)/assess compliance: Ordered Assess wound for signs and symptoms of infection, instruct on wound care and/or provide skilled wound care consisting of: Daily wet-to-dry packing of left perirectal abscess Home Bound Status Patient has a condition such that leaving home is medically contraindicated (Describe): Pain/infection/patient has to have sedation for dressing changes Describe why leaving home would require a considerable and taxing effort: Side effects from pain medication (sedation/drowsiness), Requires frequent rest periods and Safety Concerns: describe comments: Patient cannot drive Encounter Date and Reason: I certify that a FTF encounter for this patient was performed on December 29, 2022 and that such encounter was related to the primary reason the patient requires home health services. The encounter was conducted in the following manner: * By me as the certifying physician, ELECTRONIC ENGINEERING DRAFTSPERSON, PA or * By an inpatient physician, ELECTRONIC ENGINEERING DRAFTSPERSON or PA during an inpatient stay who communicated findings to me, Certification And Authentication I certify that I composed the above information based on my clinical judgment re lating to this patient's medical condition and, if applicable, clinical findings communicated to me by the NPP or inpatient physician who performed the FTF encounter. Name of Provider that will be monitoring home health services: Daisy Brown
--- NOTE | 2022-12-29 13:38 | W.PM.DS.N ---
Date of service: 12/29/22 Time of Service: 13:39 DS: Diagnosis Discharge Diagnosis (1) Sadia-rectal abscess: Status: Acute (2) Family history of diabetes mellitus: Status: Acute (3) Obesity: Status: Acute (4) Pure hypercholesterolemia: Status: Acute (5) Smoker: Status: Acute Discharge Plan Disposition Patient Disposition: Home Condition: Improving Discharge Details Reason For Visit: perirectal abscess Admit Date/Time: 12/27/22 20:01 Admit Provider: Jo Ann Rios Attending Provider: Jo Ann Rios Primary Care Provider: Kaitlyn Reilly Hospital Course Hospital Course: See addendum Home Meds and New Rx's Prescriptions: New lorazepam [Ativan] 0.5 mg tablet 0.5 mg PO DAILY PRNQty: 10 0RF Rx Instructions: Take 1 tab 60 mins prior to dressing change oxycodone 5 mg tablet 5 mg PO Q4H PRNQty: 14 0RF Rx Instructions: take 1 tab 60 mins prior to dressing change amoxicillin-pot clavulanate 875-125 mg tablet 1 tab PO BID 5 Days Qty: 10 0RF Continued pneumococcal 23-esa ps vaccine 25 mcg/0.5 mL solution 0.5 ml IM ONCE Qty: 0.5 0RF Mirena 1 EACH intrauterine device 1 ea Intrauterine ONCE Qty: 1 Discharge Instructions Additional Instructions: Keep an ice bag on the incision. 20 minutes on and 20 minutes off. Ice keeps the swelling down and swelling causes pain. Make sure you wrap the ice pack in a towel and don't apply directly to the skin. -No driving for 7 days or of you are taking narcotic pain medications. -Wet-to-dry dressing changes daily. -Take Ativan and oxycodone 60 minutes prior to dressing change. -MEDICATIONS: Alternate Tylenol 1000mg by mouth every 8 hours and Ibuprofen 600mg every 6 hours. ?Make sure you take ibuprofen with food and not on an empty stomach. ?Take the Tylenol and ibuprofen continuously for the first 72hrs- not just when you have pain.? Use the oxycodone for breakthrough pain/pain >7. You can cut the oxycodone in half.? Use ICE!?? Twenty minutes on, and then off, continuously for the first 72hours. If you are taking narcotic pain medication, follow the instructions on the label and do not drive. Pain medications can make you very constipated. Make sure you are moving your bowels daily. If not, take Miralax or Milk of Magnesia.?? -Follow-up with Dr. Brown in 01/04 3pm. -Regular diet -no straining to move bowels -pain meds are very constipating: if you do not move your bowels daily take a dose of OTC Miralax -It is ok to shower. No bathe, soaking, swimming or hot tubs -It seems to work best if you shower before your dressing change. -You may find that your appetite is smaller. Eat 3-6 small meals throughout the day. It is important to drink lots of water after surgery, 6-10 glasses a day. -If you were given an incentive spirometry (breathing library technician?), continue to do this 10x/hour while awake. -We do want you up walking, at least 5-6 times per day. This is very important to prevent pneumonia and blood clots. You can climb stairs, take them slowly. -No lifting over 5 pounds. This is very important to avoid developing a hernia in your incision. -You may find that you are very tired after surgery- this is normal. -please do not smoke for a minimum of 72 hours after surgery. -Your A1c, which is a marker for diabetes, is mildly elevated. I do recommend that you follow-up with your primary care provider to discuss improving this number. This means you are prediabetic currently. Your health care provider has covered your wound with a wet-to-dry dressing. With this type of dressing, a wet (or moist) gauze dressing is put on your wound and allowed to dry. Wound drainage and tissue can be removed when you take off the old dressing. Follow any instructions you are given on how to change the dressing. Use this sheet as a reminder. What to Expect at Home Your provider will tell you how often you should change your dressing at home. As the wound heals, you should not need as much gauze or packing gauze. Removing the Old Dressing Follow these steps to remove your dressing: ? Wash your hands thoroughly with soap and warm water before and after each dressing change. Remove the old dressing. If it is sticking to your skin, wet it with warm water to loosen it. ? Remove the gauze pads or packing tape from inside your wound. ? Changing Your Dressing Follow these steps to put a new dressing on: ? Place the gauze pads or packing tape in your wound. Carefully fill in the wound and any spaces under the skin.? Use a cotton tip applicator to gently push the packing material into the wound. ? Cover the wet gauze or packing tape with a large dry dressing pad. Use tape or rolled gauze to hold this dressing in place. ? Wash your hands again when you are finished. When to Call the Doctor Call your doctor if you have any of these changes around your wound: ? Worsening redness ? More pain ? Swelling ? Bleeding ? It is larger or deeper ? It looks dried out or dark ? The drainage is increasing ? The drainage has a bad smell Also call your doctor if: ? Your temperature is 100.5?F (38?C), or higher, for more than 4 hours ? Drainage is coming from or around the wound ? Drainage is not decreasing after 3 to 5 days ? Drainage is increasing ? Drainage becomes thick, chicas, yellow, or smells bad Activity:: See above Equipment/Supplies:: No Equipment Needed Diet:: Carb Counting DS: Summary Time Spent with Patient providing and/or coordinating discharge services: Greater than 30 minutes Status at Discharge Functional status at discharge: independent ambulation Overall status at discharge: patient is progressing back to baseline Mental Status: mental status grossly normal Speech and Movement: speech and movement normal Mood: congruent mood Affect: normal affect Exam Psych Mental Status: mental status grossly normal Speech and Movement: speech and movement normal Mood: congruent mood Affect: normal affect DS: Data Vitals/I&O Vitals and I&O: Vital Signs Temperature 36.2 C L 12/29/22 05:30 Temperature Source Tympanic 12/29/22 05:30 Pulse 57 L 12/29/22 05:30 Pulse Rhythm Regular 12/28/22 23:17 Respiratory Rate 18 12/29/22 05:30 Respiratory Effort Normal, Non-Labored 12/28/22 23:17 Respiratory Depth Normal 12/28/22 23:17 Respiratory Pattern Normal 12/28/22 23:17 Blood Pressure 132/84 12/29/22 05:30 Blood Pressure Position Standing 12/27/22 17:36 Pulse Oximetry 95 12/29/22 05:30 Respiratory End-tidal CO2 36 12/28/22 12:15 Oxygen Delivery Method Room Air 12/29/22 05:30 Oxygen Flow Rate 0 12/29/22 05:30 Pain Level 0 12/29/22 09:11 Intake & Output 12/28/22 12/29/22 12/29/22 23:59 11:59 23:59 Intake Total 600 / 1200 100 / 100 Output Total 300 / 300 Balance 300 / 900 100 / 100 Intake: IV 550 / 1150 100 / 100 Oral 50 / 50 Output: Urine 300 / 300 Other: Urine Color Yellow Urine Appearance Clear Emesis Description None Data Completed and Pending Labs on day of discharge: Labs from last 24 hours 12/29/22 06:06 WBC 10.81 H RBC 3.96 Hgb 12.4 D Hct 36.5 MCV 92 MCH 31.3 MCHC 34.0 RDW 12.6 Plt Count 141 MPV 9.9 Immature Gran % 0.4 Neutrophils % 78.7 Lymphocytes % 16.1 Monocytes % 4.1 Eosinophils % 0.4 Basophils % 0.3 Nucleated RBC % 0.0 Absolute Neutrophils 8.51 H Absolute Lymphocytes 1.74 Absolute Monocytes 0.44 Absolute Eosinophils 0.04 Absolute Basophils 0.03 Hemoglobin A1c 6.2 H 12/28/22 11:14 Rectal Anaerobic Culture - Pending 12/28/22 11:14 Perirectal Surgical Culture - Pending Preliminary micro results at discharge 12/27/22 18:33 Blood Culture - Preliminary Blood NO GROWTH 24 HOURS 12/27/22 18:10 Blood Culture - Preliminary Blood NO GROWTH 24 HOURS 12/28/22 11:14 Anaerobic Culture - Pending Rectal 12/28/22 11:14 Surgical Culture - Pending Perirectal PFSH All Active Problems Pre-diabetes (Acute) Sadia-rectal abscess (Acute) Family history of diabetes mellitus (Acute 07/13/14) father; pt did not have gestational DM Encounter for insertion of mirena IUD (Acute 03/27/16) Family history of ASCVD (Acute 07/13/14) Mother S/P CABG x 3 in her 40's Obesity (Acute 07/13/14) Pure hypercholesterolemia (Acute 07/13/14) Smoker (Acute 07/13/14) Medical History gallstone Surgical History Ligation of fallopian tube section X 2 Cholecystectomy Family History Mother Cardiovascular disease CABG Father Diabetes mellitus, type 2 Social History Smoking/Tobacco Use Status: Current every day Tobacco: How many years used: 25 Quit status: considering quitting Smoking risk assessment performed?: Yes Alcohol Intake: never Drug use: Never Substance use type: does not use Household members: significant other and children Housing: house Number of Children: 2 Communication Needs: None Education Level: high school current occupation: employed by [employer] x 13 years Current gender identity: female What is your relationship status?: living with partner How often do you talk on the phone with friends or family?: three or more times per week How often do you get together with friends or relatives?: three or more times per week Panel score (0-1 are the most socially isolated patients): 2 What type of physical activity do you participate in: walking Frequency: 5-6 times per week Seatbelt use: always Drive intox or ride w/intox compactor driver: No Working smoke detector in home: Yes Fire extinguisher in home: Yes Carbon monox detector in home: Yes Do you feel safe at home: Yes Do you feel safe in your relationship?: Yes Time Spent with Patient Time Spent with Patient: <45 minutes Time was spent: preparing to see the patient(eg.review tests), obtaining and/or reviewing separately otained hiistory, ordering medications,tests, procedures, referring, communicating with other health vocational childcare teacher, indepentently interpreting results, counseling the patient and care coordination
--- NOTE | 2022-12-29 14:17 | CMDISCH_ITS ---
Date of service: 12/29/22 Time of Service: 14:17 LACE Index Scoring Tool Questions: Length of Stay (in days): 2 Was the patient admitted via the E.D.?: Yes E.D. Visits: 1 Answers: Total Score: 6 Risk of Readmission: Low Risk Care Management Discharge Plan Reason for Hospitalization: Perirectal Abscess Discharge Plan: Nani will discharge home with new home health orders for RN- dressing changes. She will transport via private vehicle with family and follow up with community providers. Patient/Family Education Needs: Review discharge instructions, discuss Ask Me Three.
== END 2022-12-29 16:12 | disposition home or self-care (01) | DRG 346 ==
LOC: ER 20:25 → MS 12-28 09:13
PROVIDERS: Surgery; Admitting Provider Surgery; Emergency Provider Emergency Medicine; PCP Internal Medicine; Visit Provider Surgery
PROC: 0D9P0ZZ Drainage of Rectum, Open Approach (ICD-10-PCS; CPT 46040; principal; 2022-12-28 10:45)
DX: E78.00 Pure hypercholesterolemia, unspecified; F17.210 Nicotine dependence, cigarettes, uncomplicated; K61.1 Rectal abscess; R73.03 Prediabetes; Z83.3 Family history of diabetes mellitus; Z82.49 Family history of ischemic heart disease and other diseases of the circulatory system; E66.9 Obesity, unspecified; Z68.34 Body mass index [BMI] 34.0-34.9, adult
CPT/HCPCS: 46040; 00123; 36415; 80053; 81025; 87040; 87635; 96365; 96366; 96367; 96376; 99221; 99285; NC; 72193; 80202; 83036; 84703; 85025; 87070; 87075; 87205; J0131; J1100; J1170; J1885; J2001; J2250; J2270; J2405; J2543; J2704; J3490

== ENCOUNTER 2023-11-28 10:49 | Day surgery (SDC) | payer OTHER, BC, SELFPAY ==
--- NOTE | 2023-11-28 10:16 | W.PM.DSUDISC ---
Date of service: 11/28/23 Time of Service: 10:16 Discharge Plan Disposition Patient Disposition: Home Condition: Good Discharge Details Reason For Visit: L ECTR Attending Provider: Orestes Lama Primary Care Provider: Celia Regalado Home Meds and New Rx's Prescriptions: New acetaminophen 500 mg tablet 1,000 mg PO TID Qty: 90 0RF hydrocodone-acetaminophen 5-325 mg tablet 1 tab PO Q6H PRN (Reason: pain) Qty: 4 0RF ibuprofen 600 mg tablet 600 mg PO TID PRN (Reason: pain) Qty: 90 0RF Continued pneumococcal 23-esa ps vaccine 25 mcg/0.5 mL solution 0.5 ml IM ONCE Qty: 0.5 0RF colestipol [Colestid] 1 gram tablet 1 g PO BID PRN (Reason: post-brennon diarrhea) Qty: 40 0RF Mirena 1 EACH intrauterine device 1 ea Intrauterine ONCE Qty: 1 Discharge Instructions Stand Alone Forms: Anesthesia Discharge Inst., Daina Ordonez Tunnel Release, Luciana Laguerre ([facility]) Referrals: Orestes Lama MD [ [facility] STAFF PHYSICIAN] - 12/10/23 10:00 am Activity:: Activity as Tolerated Remove Dressings/Wound Care:: 48 hours Shower/Bathe:: 48 hours Diet:: As Tolerated Discharge Orders Discharge Orders: Discharge Order (Routine); Ordered 11/28/23 Ordered By: Michele Anderson DS: Diagnosis Discharge Diagnosis (1) Carpal tunnel syndrome of left wrist: Status: Acute
[2023-11-28 11:47] VITALS: BP 133/90; PULSE 87; RESP 16; TEMP 36.4; O2SAT 99
[2023-11-28] MEDS: Celecoxib 200 MG CAP 400 MG PO (11:59)
[2023-11-28] MEDS: Acetaminophen 500 MG TAB 1000 MG PO (11:59)
[2023-11-28] MEDS: Lactated Ringers 1,000 ML 80 ML IV (12:38)
--- NOTE | 2023-11-28 13:26 | W.ANESPRE ---
General Info Date of Service Date Performed: 11/28/23 Height: 5 ft 5 in Weight: 98.1 kg Body Mass Index (BMI): 35.9 Surgical Procedure: Operation Date: 11/28/23 13:25 Proposed Procedure Side Surgeon p Wrist ECTR Left Orestes Lama MD Meds Allergies and Home Medications Allergies Allergy/AdvReac Type Severity Reaction Status Date / Time doxycycline AdvReac Intermediate Vomiting Unverified 11/27/23 11:00 Home Medication ?Medication ?Instructions ?Recorded levonorgestrel 21 mcg/24 hr (up to 1 ea intrauterine ONCE #1 implant 03/27/16 8 years) 52 mg intrauterine device (Mirena) colestipol 1 gram tablet (Colestid) 1 g PO BID PRN post-brennon diarrhea 08/08/23 #40 tabs acetaminophen 500 mg tablet 1,000 mg (2 x 500 mg) PO TID #90 11/28/23 tabs hydrocodone 5 mg-acetaminophen 325 1 tab PO Q6H PRN pain #4 tabs 11/28/23 mg tablet ibuprofen 600 mg tablet 600 mg PO TID PRN pain #90 tabs 11/28/23 Current Visit Medications: Current Medications Generic Name Dose Route Start Last Admin Trade Name Freq PRN Reason Stop Dose Admin Acetaminophen 1,000 mg 11/28/23 06:00 11/28/23 11:59 Acetaminophen 500 Mg Tab PO 11/28/23 23:59 1,000 mg PREOP RENATA Administration Acetaminophen 650 mg 11/28/23 10:15 Acetaminophen 325 Mg Tab PO 12/28/23 10:14 Q4H PRN PRN Hydrocodone Bitart/Acetaminophen 0 tab 11/28/23 10:15 Hydrocodone 5/Acetaminophen 325 Tab PO 12/28/23 10:14 Q3H PRN PRN Pain Celecoxib 400 mg 11/28/23 06:00 11/28/23 11:59 Celecoxib 200 Mg Cap PO 11/28/23 23:59 400 mg PREOP RENATA Administration Ringer's Solution 1,000 mls @ 80 mls/hr 11/28/23 06:00 11/28/23 12:38 IV 11/28/23 23:59 80 mls/hr INFUSION RENATA Administration Cefazolin Sodium/Dextrose 2 gm in 50 mls @ 100 mls/hr 11/28/23 06:00 Ancef Duplex IVPB 11/28/23 23:59 PREOP RENATA IV Miscellaneous Supplies 1 each 11/28/23 06:00 Iv Access IV 11/28/23 23:59 DIRECTED RENATA Sodium Chloride 0 ml 11/28/23 06:00 Normal Saline Flush 10 Ml Syr IV 11/28/23 23:59 PRN PRN Sodium Chloride 0 ml 11/28/23 06:00 Normal Saline 10 Ml Vial IJ 11/28/23 23:59 DIRECTED PRN Sterile Water 0 ml 11/28/23 06:00 Water,Injection,Sterile 10 Ml Vial IJ 11/28/23 23:59 DIRECTED PRN PFSH Active Problems Active Problems: Problem Status Onset Code Carpal tunnel syndrome of left wrist Acute G56.02 Pre-diabetes Acute R73.03 Family history of diabetes mellitus Acute 07/13/14 Z83.3 Encounter for insertion of mirena IUD Acute 03/27/16 Z30.430 Family history of ASCVD Acute 07/13/14 Z82.49 Obesity Acute 07/13/14 E66.9 Pure hypercholesterolemia Acute 07/13/14 E78.00 Smoker Acute 07/13/14 F17.200 Medical History Medical History gallstone Surgical History Surgical History Sadia-rectal abscess repair Status post cholecystectomy Ligation of fallopian tube section X 2 Tobacco Smoking/Tobacco Use Status: Current every day Tobacco Type: cigarettes Smoking packs per day: 0.5 Years smoked: 25 Alcohol Alcohol Intake: never Substance Use Substance use: Never Substance use type: does not use Vital Signs and Lab Results Vital Signs Most Recent Vital Signs in EMR: Most Recent Vital Signs Temp Pulse Resp BP Pulse Ox 36.4 C L 87 16 133/90 99 11/28/23 11:47 11/28/23 11:47 11/28/23 11:47 11/28/23 11:47 11/28/23 11:47 Point of Care Results Point of Care Results: POC- Test(urine) Negative 11/28/23 11:47 Lab Results Blood Type / Crossmatch: No Data to Display Complete Blood Count: No Data to Display Complete Metabolic Panel: No Data to Display Liver Function Panel: No Data to Display Coagulation Panel: No Data to Display Cardiac Panel: No Data to Display Arterial Blood Gas: No Data to Display Venous Blood Gas: No Data to Display Pancreas Panel: No Data to Display Thyroid Panel: No Data to Display Infectious Disease: No Data to Display Blood Cultures: No Data to Display Toxicology Panel: No Data to Display Panel: No Data to Display Anesthesia Assessment and Plan Anesthesia History Personal History: No History of Anesthesia Complications Family History: No Family History of Anesthesia Complications Exercise Tolerance Exercise Tolerance: Metabolic Equivalents>4 Pertinent Negatives Pertinent Negatives: No Symptoms of GERD Cardiac & Pulmonary Exam Cardiac Exam: Normal S1/S2 Heart Sounds Pulmonary Exam: Clear Bilateral Breath Sounds Implantable Cardiac Device Does patient have a Pacemaker or an ICD?: No Airway Exam Known Difficult Airway: No Mallampati Class: 3 Mouth Opening: Narrow (< 3cm) Thyromental Distance: Less than 3 cm Neck Range of Motion: Full ROM Neck Circumference: Normal Teeth Condition: Normal Dentition ASA Classification ASA Score: ASA 2 Emergency Case?: No NPO Status NPO Status: NPO Clears >2 hours, Solids >8 hours Status Status: Negative HCG Anesthesia Plan Resuscitation Status: Full Code Anesthesia Technique: General Anesthesia Airway Planned: Natural Airway Monitors Used: Standard Monitors
[2023-11-28 13:27] VITALS: BMI 35.9
[2023-11-28] MEDS: ceFAZolin 2 GM/50 ML BAG IVPB (13:32)
[2023-11-28] MEDS: Lidocaine 1% Multi-Dose W/EPI 1/100,000 50 ML VIAL (13:40)
[2023-11-28 13:45] VITALS: BP 101/62; PULSE 79; RESP 16; TEMP 36.1; O2SAT 96
[2023-11-28 14:09] VITALS: BP 113/70; PULSE 74; RESP 16; TEMP 36.6; O2SAT 100
--- NOTE | 2023-11-28 14:51 | W.ANESPOSTOP ---
Postoperative Evaluation Date, Time and Location Date Performed: 11/28/23 Time Performed: 13:47 Patient Location: Day Surgery Unit Vital Signs Most Recent Imported Vital Signs: Most Recent Vital Signs Temp Pulse Resp BP Pulse Ox 36.6 C 74 16 113/70 100 11/28/23 14:09 11/28/23 14:09 11/28/23 14:09 11/28/23 14:09 11/28/23 14:09 Reviewed VS at 1345 and appropriate Pain Score Most Recent Pain Score: Most Recent Pain Score Pain Level 0 11/28/23 14:09 Assessment Mental Status: Awake (Alert & Oriented to Patient Baseline) Airway and Respiratory Function: Patent airway with normal (patient baseline) respiratory exam Cardiovascular Function: Hemodynamically Stable Hydration Status: Adequately Hydrated Nausea & Vomiting: No Nausea or Vomiting Pain: Pt. Denies Any Pain Peripheral Nerve Block: Patient did not receive a nerve block
--- NOTE | 2023-11-28 17:09 | W.PM.OP ---
Date of service: 11/28/23 Time of Service: 13:30 Operative Note Operative Note DATE OF PROCEDURE: 11/28/23 PRE-OP DIAGNOSIS: Left Carpal Tunnel Syndrome POST-OP DIAGNOSIS: same PROCEDURE: Left Endoscopic Carpal Tunnel Release SURGEON: Orestes Lama ANESTHESIA TYPE: General:No Airway Refer to Anesthesia Record ESTIMATED BLOOD LOSS: 0 PATHOLOGY: none sent TOURNIQUET TIME: 4 COMPLICATIONS: None Patient was transported to: same day Patient's condition: stable Indications: I have seen Nani in clinic for symptoms of carpal tunnel syndrome. The numbness, tingling, and pain limited function. Clinical exam findings confirmed the diagnosis of carpal tunnel syndrome. Nonoperative measures such as bracing, time, activity modifications had been tried but disability and pain persisted. I discussed carpal tunnel release with the patient. I reviewed the risks of the procedure to include, but not limited to, bleeding, infection, pain, stiffness, incomplete release, damage to nerves or vessels, persistent numbness, recurrence. Despite these risks, the patient elected to proceed. Findings: There was tightened carpal tunnel. This was dilated and released successfully with the endoscopic with increased space within the tunnel. The antebrachial fascia was released proximally freeing the median nerve at the wrist. Procedure Description: Nani was greeted in the preoperative holding area where the correct side was identified and marked. The consent was reviewed with the patient and signed. The history and physical was updated. All questions were answered. She was taken back to the operating room. The patient was placed into the supine position on the operating room table with the left arm on an arm board. A nonsterile tourniquet was placed high onto the arm. All bony prominences were well padded. Prophylactic antibiotics in the form of Cefazolin were administered. The left arm was then prepped with Chloraprep and draped in a standard fashion with stockinette and extremity drape. A timeout to confirm correct identity, side and site, procedure, allergies, anesthesia, and medical concerns was performed. The surgical site was marked in the volar wrist creases in line with the radial border of the fourth ray. This area was anesthetized with approximately 6cc of 1% Lidocaine. The limb was then exsanguinated with an Esmarch. The skin was incised with a 15 blade, approximately 1cm. The skin only was cut and the deeper tissue was dissected bluntly with a tenotomy scissor, avoiding passing nerve and venous structures. The fascia was penetrated and opened bluntly. A two-prong skin hook was placed under this proximal fascial edge. A series of hamate finders were used to identify and dilate the carpal tunnel. Synovial elevator was used to free synovial attachments to the underside of the transverse carpal ligament. My thumb was kept in the palm to parmjit the distal extent of the carpal tunnel and correctly position the hand. The [employer] endoscope was inserted without difficulty and without resistance. Excellent visualization showed horizontally running fibers of the transverse carpal ligament (TCL). The distal extent of the TCL was visualized and the end of the scope palpated with the thumb. The blade was elevated and withdrawn from distal to proximal. The TCL was split into two flaps. The endoscope was reinserted to confirm complete release and any remnant ligament was incised. The scope was withdrawn and the proximal aspect of the carpal tunnel was grossly inspected and appeared release with the median nerve visible. The antebrachial fascia at the level of the wrist was then freed from the overlying skin and then the underlying median nerve with blunt dissection. This was transected longitudinally for about 3cm proximal to the wrist incision. The wound was then irrigated with easy flow of irrigant distally and proximally. The incision was closed with a single 4-0 Nylon suture. The wound was dressed with Xeroform, Gauze, Kerlix and Jose Raul. The tourniquet was deflated with the initial dressing and held with some pressure. Blood flow returned easily to all digits with capillary refill less than 2 seconds. The patient tolerated the procedure well and was returned to the Same Day Surgery area in a stable condition suffering no known complication.
== END 2023-11-28 14:18 | disposition home or self-care (01) ==
LOC: SUR 10:49
PROVIDERS: PCP Nurse Practitioner Adult Health; Visit Provider Student in an Organized Health Care Education/Training Program
PROC: 01N54ZZ Release Median Nerve, Percutaneous Endoscopic Approach (ICD-10-PCS; CPT 29848; principal; 2023-11-28 13:15)
DX: G56.02 Carpal tunnel syndrome, left upper limb (principal)
CPT/HCPCS: 29848; 81025; J0690; J2001; J2004; J2704

== ENCOUNTER 2023-12-31 03:08 | Outpatient (CLI) | payer BC, SELFPAY ==
[2023-12-31 08:01] LABS: Anion Gap 11.1 mmol/L (3-11); BUN 6 mg/dL (7-18); CO2 27.9 mmol/L (21.0-32.0); Calcium 9.3 mg/dL (8.5-10.1); Calculated LDL 205 mg/dL (<100); Chloride 104 mmol/L (98-107); Cholesterol 268 mg/dL (<200); Estimated GFR 72.13 (mL/min/1.73m2); Glucose 166 mg/dL (74-106); HDL Cholesterol 34 mg/dL (40-60); Potassium 4.4 mmol/L (3.5-5.1); Sodium 143 mmol/L (136-145); Triglyceride 145 mg/dL (<150)
[2023-12-31 08:02] LABS: Hemoglobin A1C 6.7 % (<5.7)
== END 2023-12-31 03:09 | disposition home or self-care (01) ==
LOC: LBO 03:08
PROVIDERS: PCP Nurse Practitioner Adult Health; Visit Provider Nurse Practitioner Adult Health
DX: Z13.220 Encounter for screening for lipoid disorders (principal); Z13.1 Encounter for screening for diabetes mellitus; R73.03 Prediabetes
CPT/HCPCS: 36415; 80048; 80061; 83036

== ENCOUNTER 2024-01-14 01:04 | Outpatient (CLI) | payer BC, SELFPAY ==
--- NOTE | 2024-01-14 07:45 | DI.MAMMO_ITS ---
Exam(s) MAMMO SCREENING EXAM: MAMMO SCREENING CLINICAL HISTORY: screening,Z12.39 TECHNIQUE: Mammograms were interpreted according to the usual protocol including computer analysis w [employer] CAD system, tomosynthesis and C-view imaging. COMPARISON: No exams were available for comparison. Baseline examination. FINDINGS: The breasts are composed of scattered fibroglandular densities, Breast Density category B. No suspicious masses or suspicious microcalcifications are seen. No skin thickening or abnormal axillary lymph nodes are seen. IMPRESSION: BI-RADS Category 1, Negative mammogram Yearly screening mammography is recommended. Breast Density - Category B, scattered fibroglandular densities. A negative radiographic report should not delay biopsy if a dominant or clinically suspicious mass is present. Up to ten percent of cancers are not identified on mammography. A negative report may reinforce clinical impression. Adenosis and dense breasts may obscure an underlying neoplasm. False positive reports average 6 to 10%. Patient will receive a letter notifying them of these results.
== END 2024-01-14 01:24 ==
LOC: DI 01:04
PROVIDERS: PCP Nurse Practitioner Adult Health; Visit Provider Nurse Practitioner Adult Health
DX: Z12.31 Encounter for screening mammogram for malignant neoplasm of breast (principal)
CPT/HCPCS: 77063; 77067

== ENCOUNTER 2024-04-10 03:46 | Outpatient (CLI) | payer OTHER, SELFPAY ==
[2024-04-10 07:55] LABS: Hemoglobin A1C 6.3 % (<5.7)
[2024-04-10 07:57] LABS: Calculated LDL 115 mg/dL (<100); Cholesterol 174 mg/dL (<200); HDL Cholesterol 34 mg/dL (40-60); TSH (W/Ref FT4) 1.62 uIU/mL (0.36-3.74); Triglyceride 127 mg/dL (<150)
[2024-04-12 12:07] LABS: Lipoprotein (a) 295 nmol/L (<75)
== END 2024-04-10 03:47 | disposition home or self-care (01) ==
PROVIDERS: PCP Nurse Practitioner Adult Health; Referring Provider Nurse Practitioner Adult Health; Visit Provider Nurse Practitioner Adult Health
DX: E78.00 Pure hypercholesterolemia, unspecified (principal); E11.9 Type 2 diabetes mellitus without complications; Z83.3 Family history of diabetes mellitus; Z82.49 Family history of ischemic heart disease and other diseases of the circulatory system
CPT/HCPCS: 36415; 80061; 83695; 83036; 84443

== ENCOUNTER 2024-06-26 02:28 | Outpatient (CLI) | payer OTHER, SELFPAY ==
[2024-06-26 08:14] LABS: Hemoglobin A1C 6.7 % (<5.7)
[2024-06-26 08:18] LABS: Calculated LDL 95 mg/dL (<100); Cholesterol 166 mg/dL (<200); HDL Cholesterol 44 mg/dL (>or=50); Triglyceride 139 mg/dL (<150)
== END 2024-06-26 02:29 | disposition home or self-care (01) ==
PROVIDERS: PCP Nurse Practitioner Adult Health; Referring Provider Nurse Practitioner Adult Health; Visit Provider Nurse Practitioner Adult Health
DX: Z82.49 Family history of ischemic heart disease and other diseases of the circulatory system (principal); E78.00 Pure hypercholesterolemia, unspecified; E78.41 Elevated Lipoprotein(a); E11.9 Type 2 diabetes mellitus without complications
CPT/HCPCS: 36415; 80061; 83036

== ENCOUNTER 2024-12-30 12:34 | Outpatient (REF) | payer OTHER, SELFPAY | END 2024-12-30 12:35 | disposition home or self-care (01) | LOC: LBN 12:34 | PROVIDERS: PCP Nurse Practitioner Adult Health; Visit Provider Obstetrics & Gynecology | DX: Z12.4 Encounter for screening for malignant neoplasm of cervix (principal) | CPT/HCPCS: 88142; 87624 ==

== ENCOUNTER → 2025-01-20 00:46 | Outpatient (CLI) | payer OTHER, SELFPAY ==
--- NOTE | 2025-01-20 16:00 | DI.MAMMO_ITS ---
Exam(s) MAMMO SCREENING EXAM: MAMMO SCREENING CLINICAL HISTORY: screening. TECHNIQUE: Bilateral full field digital CC and MLO mammographic images were obtained with 3D tomosynthesis and utilizing computer aided detection (CAD). COMPARISON: Prior baseline mammogram December 2023 was reviewed FINDINGS: There has been no significant change in the appearance and distribution of the fibroglandular tissue. Small benign-appearing well-defined 3 mm nodule in the lateral aspect of the left breast located 6 cm in from the nipple is unchanged. There are no new spiculated masses nor new malignant appearing microcalcification groups. There is no significant architectural distortion nor skin thickening-retraction. IMPRESSION: No radiographic evidence of malignancy. Stable benign-appearing finding. BI-RADS Category 2 - Benign Findings Breast Density - Category B - There are scattered areas of fibroglandular density. Breast density Category C or D implies that the patient has dense breast tissue. Dense breast tissue can make it harder to find cancer on a mammogram. Dense breast tissue is also associated with an increased risk of breast cancer. This information about the result of the mammogram report was provided to the patient to raise their awareness. Use this report when you speak with the patient about their risks for breast cancer, which includes their family history. At that time, you may recommend additional screening tests (Ultrasound or MRI) as these tests may add significant information. A negative radiographic report should not delay biopsy if a dominant or clinically suspicious mass is present. Up to ten percent of cancers are not identified on mammography. A negative report may reinforce clinical impression. Adenosis and dense breasts may obscure an underlying neoplasm. False positive reports average 6 to 10%. Patient will receive a letter notifying them of these results.
== END ==
LOC: DI 00:46
PROVIDERS: PCP Nurse Practitioner Adult Health; Visit Provider Obstetrics & Gynecology
DX: Z12.31 Encounter for screening mammogram for malignant neoplasm of breast (principal); R92.323 Mammographic fibroglandular density, bilateral breasts
CPT/HCPCS: 77063; 77067

== ENCOUNTER 2025-02-23 01:23 | Outpatient (CLI) | payer OTHER, SELFPAY ==
[2025-02-23 07:39] LABS: HCT 43.0 % (36.0-46.0); HGB 14.6 g/dL (11.2-15.7); MCH 29.9 pg (27.0-33.0); MCHC 34.0 % (32.0-36.0); MCV 88 fL (80-95); MPV 9.3 fL (8.0-11.0); Platelet Count 149 10^3/uL (130-400); RBC 4.89 10^6/uL (3.93-5.22); RDW 12.7 % (11.7-14.6); RDW-SD 41.1 fL; WBC 7.22 10^3/uL (4.4-10.8)
== END 2025-02-23 01:24 | disposition home or self-care (01) ==
LOC: LBO 01:23
PROVIDERS: PCP Nurse Practitioner Adult Health; Visit Provider Obstetrics & Gynecology
DX: Z01.818 Encounter for other preprocedural examination (principal)
CPT/HCPCS: 36415; 85027; 86850; 86900; 86901

== ENCOUNTER 2025-02-25 06:59 | Day surgery (SDC) | payer OTHER, SELFPAY ==
[2025-02-25 07:10] VITALS: BP 122/85; PULSE 91; RESP 20; TEMP 36.7; O2SAT 98
--- NOTE | 2025-02-25 07:25 | W.PM.HP.N ---
Date of service: 02/25/25 Time of Service: 07:25 Assessment and Plan Assessment and plan (1) Abnormal uterine bleeding: Status: Acute Assessment and plan: 44 yo (h/o x2) - H/O DM type 2 - BMI 34.6 - Current daily cigarette smoker - Sexually active in a committed, heterosexual relationship - Denies h/o sexual assault - contraception: BTL and Mirena (placed 2017) - Last pap smear 12/30/2024 neg cytology, neg HPV - Last mammogram bi-rads 1, cat B - Denies family h/o breast, uterine, colon, or ovarian CA - - - - - - - - - - - - - - 01/20/2025 (Catarino): Patient presents today for replacement of Mirena IUD. Of note, I was best able to adequately visualize the cervix using a long Renae speculum with a rolled up towel behind her hips. Bimanual exam appreciated an anteverted uterus and the cervix was notably posterior. In attempting to remove the IUD, only 1 string was appreciated, and I was unable to successfully remove the IUD with gentle traction using the 1 strings despite repeated attempts. Procedure was abandoned given patient discomfort and inability to easily remove the IUD. We discussed retrying again in the office with premedication versus trying in the OR under anesthesia possible hysteroscopy. Patient would like to try again in the office with premedication. She will be prescribed Valium and Motrin for pain management and was instructed to take these 30 minutes prior to her visit. She was also instructed to have someone drive her to her visit. She will need the ultrasound in her room at the time of the procedure for ultrasound guidance as well as the potential utility of a Lauren and IUD hook. Small, metal dilators should also be available. 02/23/2025 (Catarino): Patient presents for pre-operative assessment for planned hysteroscopic retrieval of retained IUD with replacement of IUD. The procedure was reviewed with the patient and she is in agreement with the plan. We discussed that, as with anytime we break the skin, there is always a risk of bleeding, infection, damage to surrounding tissues, most notably in this case, there is a risk of uterine perforation where instruments go through the back of the uterus. We discussed that if this were to happen it could they require more invasive procedures for correction and prolonged hospitalization. We discussed that there are risks associated with anesthesia as well as unforeseen complications. All questions were answered to the patient satisfaction and she was consented for hysteroscopic retrieval of retained IUD with replacement with Mirena. 02/25/2025 (Catarino): Patient presents today for scheduled hysteroscopic retrieval of retained IUD with replacement. No interval changes. Plan to proceed with procedure as planned. - - - - - - - - - - - - - - History of Present Illness Narrative: Patient presents for scheduled hysteroscopic retrieval of retained IUD with replacement. Review of Systems All systems reviewed & are unremarkable except as noted in HPI and below PFSH All Active Problems (Updated 02/25/25 @ 07:28 by Aparna Toribio DO) Abnormal uterine bleeding (Acute) Elevated Lp(a) (Acute) 295 Nicotine use disorder (Acute) Hypercholesterolemia with LDL greater than 190 mg/dL (Acute ~12/2023) Diabetes type 2, controlled (Acute ~12/2023) Dx'ed 12/2023 Family history of diabetes mellitus (Acute 07/13/14) father; pt did not have gestational DM Encounter for insertion of mirena IUD (Acute 03/27/16) Family history of ASCVD (Acute 07/13/14) Mother S/P CABG x 3 in her 40's Obesity (Acute 07/13/14) Medical History New onset type 2 diabetes mellitus (~12/2023) Pre-diabetes gallstone Surgical History Carpal tunnel syndrome of left wrist S/P ECTR: 11/28/2023 S/P carpal tunnel release (~11/2023) [facility]-Left Wrist Sadia-rectal abscess repair Status post cholecystectomy Ligation of fallopian tube section X 2 Family History Mother Cardiovascular disease CABG Diabetes mellitus, type 2 Father Diabetes mellitus, type 2 Social History Smoking/Tobacco Use Status: Current every day Tobacco Type: cigarettes Smoking packs per day: 0.5 Smoking cigarettes per day: 10.0 Years smoked: 25 Smoking pack-years: 12.50 Tobacco: How many years used: 20 Quit status: quit date established Smoking risk assessment performed?: Yes Alcohol Intake: never Drug use: Never Substance use type: does not use Counseling given: Yes (pt is on and off with smoking cessation) Adopted: No Caregiver/Support person: No Foster care: No Household members: significant other and children Housing: house Number of Children: 2 Communication Needs: None Education Level: high school Do you need help understanding health information?: Never current occupation: employed by [employer] x 17 years Pets and animals: Yes (3 cats, 2 dogs, 4 hampsters) Sexually active: Yes Current gender identity: female What is your relationship status?: living with partner How often do you talk on the phone with friends or family?: three or more times per week How often do you get together with friends or relatives?: three or more times per week How often do you attend nondenominational or druze services?: decline to answer Do you belong to any clubs or organized social groups?: decline to answer Panel score (0-1 are the most socially isolated patients): 2 What type of physical activity do you participate in: walking Duration: 15-30 minutes/day Frequency: 3-4 times per week Seatbelt use: always Helmet use: Yes Helmet use: always 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 Date GA/Weeks # Preg Succ Route Wgt Sex Labor Lgth Anesthesia Location Prov Complic 02/04/03 No Yes 8 lb Female [facility] 11/03/10 38 No Yes 6 lb Female [facility] Meds Allergies and Home Medications Allergies Allergy/AdvReac Type Severity Reaction Status Date / Time doxycycline AdvReac Intermediate Vomiting Verified 02/25/25 07:27 Home Medications ?Medication ?Instructions ?Recorded ?Confirmed ?Type levonorgestrel (Mirena) 1 ea intrauterine ONCE #1 implant 03/27/16 02/24/25 History pneumococcal 23-esa ps vaccine 25 0.5 ml IM ONCE #0.5 mL 05/11/21 02/24/25 Clinic mcg/0.5 mL injection solution colestipol 1 gram tablet (Colestid) 1 g PO BID PRN post-brennon diarrhea 08/08/23 02/24/25 Rx #40 tabs blood sugar diagnostic (Blood #100 ea 01/17/24 01/20/25 Rx Glucose Test strips) blood-glucose meter #1 ea 01/17/24 01/20/25 Rx lancets #100 ea 01/17/24 01/20/25 Rx mupirocin 2 % topical ointment 1 applic topical BID-TID #15 grams 01/17/24 02/24/25 Rx rosuvastatin 20 mg tablet 20 mg PO .bedtime #90 tabs 04/17/24 02/24/25 Rx Exam Narrative Exam Narrative: General: Well-nourished female no immediate distress Pulmonary: No overt respiratory distress; clear to auscultation bilaterally Cardiology: No overt arrhythmias or murmurs Abdomen: Soft nondistended nontender Extremities: No swelling Psych: Appropriate calm and cooperative Const General: cooperative, comfortable, no acute distress and well developed Nutritional Appearance: well nourished Orientation: alert HENMT Head: normocephalic Neck Neck: supple Neuro General: patient alert and patient awake Psych Appearance: grossly normal VTE Prohylaxis Risk Level: Low Risk Contraindications: None Prophylaxis: Patient ambulatory Time Spent Time spent with Patient: 40-54 minutes Time was spent: preparing to see the patient(eg.review tests), obtaining and/or reviewing separately otained hiistory, ordering medications,tests, procedures, indepentently interpreting results, counseling the patient and care coordination
[2025-02-25] MEDS: Lactated Ringers 1,000 ML 150 ML IV (07:35)
--- NOTE | 2025-02-25 08:10 | ANES.PREOP_ITS ---
General Info Date of Service Date Performed: 02/25/25 Height: 5 ft 5 in Weight: 94.1 kg Body Mass Index (BMI): 34.5 Surgical Procedure: Operation Date: 02/25/25 08:40 Proposed Procedure Side Surgeon p Hysteroscopy, Retrival of IUD- Mirena Aparna Toribio, s Insertion of IUD Aparna Toribio, DO Meds Allergies and Home Medications Allergies Allergy/AdvReac Type Severity Reaction Status Date / Time doxycycline AdvReac Intermediate Vomiting Verified 02/25/25 07:27 Home Medication ?Medication ?Instructions ?Recorded levonorgestrel (Mirena) 1 ea intrauterine ONCE #1 im plant 03/27/16 colestipol 1 gram tablet (Colestid) 1 g PO BID PRN pos t-brennon diarrhea 08/08/23 #40 tabs blood sugar diagnostic (Blood #100 ea 01/17/24 Glucose Test strips) blood-glucose meter #1 ea 01/17/24 lancets #100 ea 01/17/24 mupirocin 2 % topical ointment 1 applic topical BID-TI D #15 grams 01/17/24 rosuvastatin 20 mg tablet 20 mg PO .bedtime #90 tabs 0 04/17/24 Current Visit Medications: Current Medications Generic Name Dose Route Start Last Admin Trade Name Freq PRN Reason Stop Dose Admin Ringer's Solution 1,000 mls @ 150 mls/hr 02/25/25 06:00 02/25/25 07:35 IV 02/25/25 23:59 150 mls/hr INFUSION RENATA Administration Sodium Chloride 0 ml 02/25/25 06:00 Normal Saline Flush 10 Ml Syr IV 02/25/25 23:59 PRN PRN Sodium Chloride 0 ml 02/25/25 06:00 Normal Saline 10 Ml Vial IJ 02/25/25 23:59 DIRECTED PRN Sterile Water 0 ml 02/25/25 06:00 Water,Injection,Sterile 10 Ml Vial IJ 02/25/25 23:59 DIRECTED PRN PFSH Active Problems Active Problems: Problem Status Onset Code Abnormal uterine bleeding Acute N93.9 Elevated Lp(a) Acute E78.41 Nicotine use disorder Acute F17.200 Hypercholesterolemia with LDL greater than 190 mg/dL Acute ~12/2023 E78.00 Diabetes type 2, controlled Acute ~12/2023 E11.9 Family history of diabetes mellitus Acute 07/13/14 Z83.3 Encounter for insertion of mirena IUD Acute 03/27/16 Z30.430 Family history of ASCVD Acute 07/13/14 Z82.49 Obesity Acute 07/13/14 E66.9 Medical History Medical History New onset type 2 diabetes mellitus (~12/2023) Pre-diabetes gallstone Surgical History Surgical History Carpal tunnel syndrome of left wrist S/P ECTR: 11/28/2023 S/P carpal tunnel release (~11/2023) [facility]-Left Wrist Sadia-rectal abscess repair Status post cholecystectomy Ligation of fallopian tube section X 2 Tobacco Smoking/Tobacco Use Status: Current every day Tobacco Type: cigarettes Smoking packs per day: 0.5 Smoking cigarettes per day: 10.0 Years smoked: 25 Smoking pack-years: 12.50 Passive smoking exposure: No Alcohol Alcohol Intake: never Substance Use Substance use: Never Substance use type: does not use Prental History History 2 Para 2 Hx # Term Pregnancies Multiple births Hx # Pregnancies Ectopic pregnancies AB induced Hx Number of Living Children 2 AB spontaneous Past Pregnancies Del. Date GA/Weeks # Preg Succ Route Wgt Sex Labor Lgth Anesth esia Location [facility] 02/04/03 No Yes 3628.[address] [facility] 11/03/10 38 No Yes 2721.[address] [facility] Vital Signs and Lab Results Vital Signs Most Recent Vital Signs in EMR: Most Recent Vital Signs Temp Pulse Resp BP Pulse Ox 36.7 C 91 H 20 122/85 98 02/25/25 07:10 02/25/25 07:10 02/25/25 07:10 02/25/25 07:10 02/25/25 07:10 Point of Care Results Point of Care Results: POC- Test(urine) Negative 02/25/25 07:33 Finger Stick Blood Glucose 172 02/25/25 07:25 Lab Results Blood Type / Crossmatch: Antibody Screen NEGATIVE 02/23/25 Complete Blood Count: WBC, (4.4-10.8) 7.22 10^3/uL 02/23/25, 07:23 RBC, (3.93-5.22) 4.89 10^6/uL 02/23/25, 07:23 Hgb, (11.2-15.7) 14.6 g/dL 02/23/25, 07:23 Hct, (36.0-46.0) 43.0 % 02/23/25, : Plt Count, (130-400) 149 10^3/uL 02/23/25, 07:23 Anesthesia Assessment and Plan Anesthesia History Personal History: No History of Anesthesia Complications Family History: No Family History of Anesthesia Complications Exercise Tolerance Exercise Tolerance: Metabolic Equivalents>4 Pertinent Negatives Pertinent Negatives: No Symptoms of GERD Cardiac & Pulmonary Exam Cardiac Exam: Normal S1/S2 Heart Sounds Pulmonary Exam: Clear Bilateral Breath Sounds Implantable Cardiac Device Does patient have a Pacemaker or an ICD?: No Airway Exam Known Difficult Airway: No Mallampati Class: 3 Mouth Opening: Narrow (< 3cm) Thyromental Distance: Less than 3 cm Neck Range of Motion: Full ROM Neck Circumference: Normal Teeth Condition: Normal Dentition ASA Classification ASA Score: ASA 2 Emergency Case?: No NPO Status NPO Status: NPO Clears >2 hours, Solids >8 hours Status Status: Negative HCG Anesthesia Plan Resuscitation Status: Full Code Anesthesia Technique: General Anesthesia Airway Planned: Natural Airway Monitors Used: Standard Monitors
[2025-02-25 08:11] VITALS: BMI 34.5
[2025-02-25 08:55] VITALS: BP 101/63; PULSE 80; RESP 16; TEMP 35.9; O2SAT 97
--- NOTE | 2025-02-25 09:06 | W.PM.OP ---
Operative Note Operative Note PRE-OP DIAGNOSIS: Retained IUD POST-OP DIAGNOSIS: same PROCEDURE: Hysteroscopic retrieval of retained IUD with replacement with Mirena IUD SURGEON: Aparna Toribio Refer to Anesthesia Record ESTIMATED BLOOD LOSS: 5 PATHOLOGY: none sent COMPLICATIONS: None Patient's condition: stable Implants: Mirena IUD; LOT # Indications: Attempted IUD replacement in the office failed due to perceived embedment. Patient opted for replacement in the OR. Findings: Narrow vaginal introitus (secondary to hymenal tissue?) requiring narrow Chery speculum. Two strings appreciated at the introitus and easily removed IUD fully intact once patient relaxed with anesthesia Procedure Description: Patient was taken to the OR with IV fluids running. Antibiotic prophylaxis was not indicated. Anesthesia was established, and patient was positioned with her legs up in yellowfin stirrups into a modified dorsolithotomy position. Patient had urinated just prior to entering the OR. The vagina and pelvis were prepped with Betadine. A timeout was performed and the patient as well as procedure were confirmed. Attempts to visualize the cervix with a side-loading Grave's speculum met considerable resistance due to the narrow aginal introitus; therefore, the speculum was exchanged for a narrow Chery speculum. Anterior lip was grasped with a single-tooth tenaculum. The strings were fully appreciated, grasped with ring forceps, and easily removed with gentle traction and without issue. The cervix was then progressively dilated to accommodate a Mirena entry level mechanical engineer. The uterus sounded to 8 cm. The IUD was retracted into the loaded device, and the flange was set to 1/2 cm shy of the send at length. The IUD was then introduced using industry standards without issue. The strings were cut to half the vaginal length. All instruments removed and the patient tolerated the procedure well. She was taken to the PACU in good condition. Date of Procedure: 02/25/25
[2025-02-25 09:25] VITALS: BP 111/75; PULSE 71; RESP 18; TEMP 36.3; O2SAT 100
--- NOTE | 2025-02-25 11:00 | W.ANESPOSTOP ---
Postoperative Evaluation Date, Time and Location Date Performed: 02/25/25 Time Performed: 11:00 Patient Location: Day Surgery Unit Vital Signs Most Recent Imported Vital Signs: Most Recent Vital Signs Temp Pulse Resp BP Pulse Ox 36.3 C L 71 18 111/75 100 02/25/25 09:25 12 09:25 02/25/25 09:25 02/25/25 09:25 02/25/25 09:25 Pain Score Most Recent Pain Score: Most Recent Pain Score Pain Level 0 02/25/25 09:25 Assessment Mental Status: Awake (Alert & Oriented to Patient Baseline) Airway and Respiratory Function: Patent airway with normal (patient baseline) respiratory exam Cardiovascular Function: Hemodynamically Stable Hydration Status: Adequately Hydrated Nausea & Vomiting: No Nausea or Vomiting Pain: Pt. Denies Any Pain Peripheral Nerve Block: Patient did not receive a nerve block
== END 2025-02-25 09:40 | disposition home or self-care (01) ==
PROVIDERS: PCP Nurse Practitioner Adult Health; Visit Provider Obstetrics & Gynecology
PROC: (CPT 58562; 2025-02-25 08:30)
DX: N93.9 Abnormal uterine and vaginal bleeding, unspecified (principal); E78.00 Pure hypercholesterolemia, unspecified; E11.9 Type 2 diabetes mellitus without complications; E66.9 Obesity, unspecified
CPT/HCPCS: 58562; 58300; 81025; J2704; J3010